=== PATIENT | female | born 1935 | race Caucasian/White ===

== ENCOUNTER 2016-08-05 17:15 | Outpatient (CLI) | payer MEDICARE, OTHER | END 2016-08-05 17:16 | disposition home or self-care (01) | DX: R10.84 Generalized abdominal pain (principal) ==

== ENCOUNTER 2017-10-02 15:06 | Outpatient (CLI) | payer MEDICARE, OTHER ==
--- NOTE | 2017-10-03 14:50 | Mammography Report ---
SCREENING MAMMOGRAM: 10/03/2017 CLINICAL INDICATION: An 82-year-old female with a history of benign left breast biopsy, family history of breast cancer, for screening. COMPARISON: 05/2016, 04/2015, 10/2014, 02/2014, 02/2010. TECHNIQUE: Routine CC and MLO projections were obtained of the breasts. FINDINGS: The breasts again demonstrate fatty replacement bilaterally. Biopsy marker in the left central breast is stable. Coarse and punctate, typically benign calcifications are present. No suspicious masses, clustered microcalcifications, or regions of architectural distortion are identified. IMPRESSION: BENIGN FINDINGS. RECOMMENDATION: Routine annual screening unless otherwise clinically indicated. BIRADS CATEGORY - 2 benign findings. STANDARD QUALIFYING STATEMENTS: 1. This examination was reviewed with the aid of Computer-Aided Detection (CAD). 2. A negative or benign imaging report should not delay biopsy if clinically suspicious findings are present. Consider surgical consultation if warranted. More than 5% of cancers are not identified by imaging. 3. Dense breasts may obscure an underlying neoplasm. TD: 10/03/2017 12:33
== END 2017-10-02 15:07 | disposition home or self-care (01) ==
LOC: DI 15:06
PROVIDERS: ATTEND Physician Assistant Medical
DX: Z12.31 Encounter for screening mammogram for malignant neoplasm of breast (principal); Z80.3 Family history of malignant neoplasm of breast
CPT/HCPCS: 77067

== ENCOUNTER 2017-12-20 16:35 | Outpatient (CLI) | payer MEDICARE, OTHER ==
--- NOTE | 2017-12-20 17:45 | Ultrasound Report ---
REVISED: THIS REPORT WAS ORIGINALLY SIGNED ON 12/20/2017 @ 17:47. THE DATE OF SERVICE WAS CORRECTED ON 12/26/2017. Procedure Date: 12/20/2017 Accession Number: [id number] / [id number] Procedure: US - Duplex Ext Veins Left CPT Code: FULL RESULT: EXAM: LEFT LOWER EXTREMITY VENOUS ULTRASOUND EXAM DATE: 12/20/2017 05:17 PM. CLINICAL HISTORY: EDEMA LEG. COMPARISON: None. TECHNIQUE: Real-time sonographic vascular imaging was performed by the wind site manager through the lower extremity utilizing both color-flow and Doppler spectral analysis. Multiple patient access representative static images were saved for review. FINDINGS: Common Femoral Vein (CFV): Normal. CFV-GSV Junction: Normal. Profunda Femoral Vein (PFV): Normal. Femoral Vein (FV) Prox: Normal. Femoral Vein (FV) Mid: Normal. Femoral Vein (FV) Dist: Normal. Popliteal Vein: Normal. Posterior Tibial Veins: Normal. Peroneal Veins: Normal. Other: None. IMPRESSION: No evidence for deep venous thrombosis. RADIA MTDD
== END 2017-12-20 16:36 | disposition home or self-care (01) ==
LOC: DI 16:35
PROVIDERS: ATTEND Physician Assistant Medical
DX: R60.0 Localized edema (principal)

== ENCOUNTER 2018-09-22 08:08 | Outpatient (CLI) | payer MEDICARE, OTHER ==
[2018-09-22 12:43] LABS: BASOPHILS % (AUTO) 0.5 %; EOSINOPHILS # (AUTO) 0.2 10^3/uL (0.0-0.7); EOSINOPHILS % (AUTO) 3.3 %; HGB - HEMOGLOBIN 13.2 g/dL (12.0-16.0); LYMPHOCYTES # (AUTO) 1.1 10^3/uL (1.5-3.5); MEAN CORPUSCULAR HGB CONC 33.6 g/dL (32.0-36.0); MEAN CORPUSCULAR VOLUME 89.3 fL (81.0-99.0); MEAN PLATELET VOLUME 9.9 fL (7.9-10.8); MONOCYTES # (AUTO) 0.5 10^3/uL (0.0-1.0); MONOCYTES % (AUTO) 8.1 %; NEUTROPHILS # (AUTO) 4.4 10^3/uL (1.5-6.6); NEUTROPHILS % (AUTO) 70.1 %; PLT - PLATELET COUNT 180 10^3/uL (130-450); RED BLOOD COUNT 4.41 10^6/uL (4.20-5.40); RED CELL DISTRIBUTION WIDTH 14.5 % (12.0-15.0); WHITE BLOOD COUNT 6.3 x10^3/uL (4.8-10.8)
[2018-09-22 13:16] LABS: ALBUMIN 3.6 g/dL (3.2-5.5); ALBUMIN/GLOBULIN RATIO 1.2 (1.0-2.2); ALKALINE PHOSPHATASE 90 IU/L (42-121); ALT ALANINE AMINOTRANSFERASE 30 IU/L (10-60); AST ASPARTATE AMINOTRANSFERASE 25 IU/L (10-42); BILIRUBIN,TOTAL 0.8 mg/dL (0.2-1.0); BUN - BLOOD UREA NITROGEN 24 mg/dL (6-20); CALCIUM 8.8 mg/dL (8.5-10.3); CARBON DIOXIDE - CO2 23 mmol/L (21-32); CHLORIDE 109 mmol/L (101-111); CHOL/HDL RATIO 2.4 (<4.4); CHOLESTEROL 127 mg/dL; CREATININE 0.9 mg/dL (0.4-1.0); GFR - MDRD 60 (>89); GLUCOSE 160 mg/dL (70-100); HDL CHOLESTEROL 52 mg/dL; LDL CHOLESTEROL,CALCULATED 60 mg/dL; LDL/HDL RATIO 1.2 (<4.4); SODIUM 141 mmol/L (135-145); TOTAL PROTEIN 6.5 g/dL (6.7-8.2); VLDL CHOLESTEROL 15 mg/dL
[2018-09-22 13:34] LABS: HB2 TOTAL 14.5 g/dL; HEMOGLOBIN A1C 0.75 g/dL; HEMOGLOBIN A1C % 6.9 % (4.6-6.2)
== END 2018-09-22 08:09 | disposition home or self-care (01) ==
LOC: LAB.WCP 08:08
PROVIDERS: ATTEND Physician Assistant Medical
DX: E11.51 Type 2 diabetes mellitus with diabetic peripheral angiopathy without gangrene (principal); E78.5 Hyperlipidemia, unspecified; I10 Essential (primary) hypertension
CPT/HCPCS: 36415; 80053; 80061; 83036; 83721; 84443; 85025

== ENCOUNTER 2018-12-12 08:05 | Emergency (ER) | payer MEDICARE, OTHER ==
--- NOTE | 2018-12-12 09:21 | ED Physician Documentation ---
PD HPI URI - Stated complaint Stated Complaint: COUGH - Chief complaint Chief Complaint: Resp - History obtained from History obtained from: Patient, Family - History of Present Illness Timing - onset: How many days ago (5) Timing duration: Days (5) Timing details: Gradual onset, Still present Associated symptoms: Fever, Nasal congestion, Rhinorrhea, Dry cough, Dyspnea Contributing factors: Sick contact Improves by: Rest, Medication Similar symptoms before: Diagnosis (pneumonia) Recently seen: Not recently seen Review of Systems Constitutional: reports: Fever Eyes: denies: Decreased vision Ears: denies: Ear pain Nose: reports: Congestion Throat: denies: Sore throat Cardiac: denies: Chest pain / pressure, Palpitations Respiratory: reports: Cough. denies: Dyspnea GI: denies: Abdominal Pain, Nausea, Vomiting : denies: Dysuria, Frequency PD PAST MEDICAL HISTORY - Past Medical History Cardiovascular: Hypertension, High cholesterol, Coronary artery disease Endocrine/Autoimmune: Type 2 diabetes, HyPOthyroidism - Present Medications Home Medications: Ambulatory Orders Medication Instructions Recorded Confirmed Aspirin [Bette Chewable] 81 mg PO DAILY 08/27/15 08/27/15 Atorvastatin [Lipitor] 20 mg PO DAILY 08/27/15 08/27/15 Insulin Glargine,Hum.rec.anlog 6 unit SQ DAILY 08/27/15 08/27/15 [Lantus Solostar] Insulin Glulisine [Apidra Solostar] 6 unit SQ TIDWM 08/27/15 08/27/15 Levothyroxine [Synthroid] 150 mcg PO QDAC 08/27/15 08/27/15 Losartan Potassium 50 mg PO DAILY 08/27/15 08/27/15 Nitroglycerin [Nitrostat] 0.4 mg SL Q5M PRN 08/27/15 08/27/15 Amlodipine Besylate 12/12/18 Amox/Clav 875/125 [Augmentin] 1 each PO Q12H #20 tablet 12/12/18 Isosorbide Dinitrate 30 mg PO 12/12/18 - Allergies Allergies/Adverse Reactions: Allergies Allergy/AdvReac Type Severity Reaction Status Date / Time PHANI Inhibitors Allergy Unknown Verified 12/12/18 08:18 azithromycin [From Zithromax] Allergy Unknown Verified 12/12/18 08:18 - Social History Does the pt smoke?: No Smoking Status: Never smoker Does the pt drink ETOH?: No - Immunizations Immunizations are current?: Yes PD ED PE NORMAL - Vitals Vital signs reviewed: Yes (hypertensive ) - General General: Alert and oriented X 3, No acute distress, Well developed/nourished - HEENT HEENT: Atraumatic, PERRL, EOMI, Pharynx benign, Other (both TM's are inflammed with distortion of the landmarks) - Neck Neck: Supple, no meningeal sign, No bony TTP - Cardiac Cardiac: RRR, No murmur - Respiratory Respiratory: No respiratory distress, Other (rhonchi in the right base ) - Abdomen Abdomen: Soft, Non tender - Back Back: No CVA TTP, No spinal TTP - Derm Derm: Normal color, Warm and dry, No rash - Extremities Extremities: No deformity, No edema - Neuro Neuro: Alert and oriented X 3, hoe worker 2-12 intact, No motor deficit, No sensory deficit, Normal speech Eye Opening: Spontaneous Motor: Obeys Commands Verbal: Oriented GCS Score: 15 - Psych Psych: Normal mood, Normal affect Results - Vitals Vitals: Vital Signs - 24 hr 12/12/18 12/12/18 12/12/18 08:16 08:42 11:21 Temperature 36.8 C 37.1 C Heart Rate 61 60 54 L Respiratory 20 20 16 Rate Blood Pressure 149/69 H 132/61 H 158/59 H O2 Saturation 94 97 96 Oxygen O2 Source Room air - Rads (name of study) chest Radiology: Prelim report reviewed (Impression: 1. Mild left basilar opacity, atelectasis/scarring or infiltrate. Right lung appears clear. Evidence of prior intrathoracic surgery.), EMP read indepedently, See rad report PD MEDICAL DECISION MAKING - ED course Complexity details: reviewed results, re-evaluated patient, considered differential, d/w patient, d/w family ED course: 83 y/o female with cough and congestion has BOM on exam and rhonchi with correlating findings on CXR. She is administered IM rocephin. Departure - Departure Disposition: 01 Home, Self Care Clinical Impression: Pneumonia Qualifiers: Pneumonia type: due to unspecified organism Laterality: bilateral Lung location: lower lobe of lung Qualified Code(s): J18.1 - Lobar pneumonia, unspecified organism Otitis media Qualifiers: Otitis media type: suppurative Chronicity: acute Laterality: bilateral Recurrence: non-recurrent Spontaneous tympanic membrane rupture: without spontaneous rupture Qualified Code(s): H66.003 - Acute suppurative otitis media without spontaneous rupture of ear drum, bilateral Condition: Stable Instructions: ED Otitis Media Acute Adult, ED Pneumonia Adult Follow-Up: Promise Morris PA-C [Primary Care Provider] - Prescriptions: Amox/Clav 875/125 [Augmentin] 1 each PO Q12H #20 tablet Discharge Date/Time: 12/12/18 11:21
[2018-12-12] MEDS ORDERED: LIDOCAINE 1% 2 ML VIAL MC ONE (09:48)
[2018-12-12] MEDS ORDERED: cefTRIAXone 1 GM VIAL IM STA (09:48)
--- NOTE | 2018-12-12 10:19 | XRAY Report ---
Reason: rhonchi in right base Procedure Date: 12/12/2018 Accession Number: [id number] / [id number] Procedure: XR - Chest 2 View X-Ray CPT Code: 18305 FULL RESULT: EXAM: CHEST RADIOGRAPHY EXAM DATE: 12/12/2018 09:35 AM. CLINICAL HISTORY: Rhonchi in right base. COMPARISON: CHEST SPECIAL VIEW 04/14/2013 10:34 AM. TECHNIQUE: 2 views. FINDINGS: Lungs/Pleura: Mild left basal opacity, atelectasis/ scarring or infiltrate. Right lung appears clear. No significant pleural effusion or evidence of pneumothorax. Mediastinum: Similar cardiomegaly. Sternotomy changes with evidence of CABG. Other: None. IMPRESSION: 1. Mild left basal opacity, atelectasis/scarring or infiltrate. Right lung appears clear. 2. Evidence of prior intrathoracic surgery. RAD[facility]
[2018-12-12 11:21] VITALS: BP 158/59
== END 2018-12-12 11:21 | disposition home or self-care (01) ==
LOC: ED 08:05
DX: J18.1 Lobar pneumonia, unspecified organism (principal); H66.003 Acute suppurative otitis media without spontaneous rupture of ear drum, bilateral; I10 Essential (primary) hypertension; E11.9 Type 2 diabetes mellitus without complications; Z79.4 Long term (current) use of insulin
CPT/HCPCS: 71046; 96372; 99283; 99284

== ENCOUNTER 2018-12-28 13:52 | Outpatient (CLI) | payer MEDICARE, OTHER ==
--- NOTE | 2018-12-29 08:48 | Mammography Report ---
Reason: SCREENING MAMMO Procedure Date: 12/28/2018 Accession Number: [id number] / [id number] Procedure: FABIOLA - Screening Mammo w/Sky CPT Code: FULL RESULT: EXAM: Screening Mammo w/Sky DATE: 12/28/2018 2:59 PM CLINICAL HISTORY: Screening encounter. Family history of breast cancer in the mother as well as a sister. History of left breast core biopsy with clip placement. TECHNIQUE: (B) - Bilateral CC and MLO views were obtained. COMPARISON: 10/02/2017 through 02/06/2010. PARENCHYMAL PATTERN: (F) - The breast(s) demonstrate(s) diffuse fatty replacement. FINDINGS: There are typically benign vascular calcifications. A left breast biopsy clip is redemonstrated. There are no suspicious masses, calcifications, or areas of distortion. IMPRESSION: Benign findings. BI-RADS category 2. RECOMMENDATION: (ANNUAL) - Recommend routine annual screening mammography. BI-RADS CATEGORY: (2) - Benign Findings. STANDARD QUALIFYING STATEMENTS: 1. This examination was not reviewed with the aid of Computer-Aided Detection (CAD). 2. A negative or benign imaging report should not preclude biopsy if clinically suspicious findings are present. 3. Dense breasts may obscure an underlying neoplasm. 4. This examination was reviewed with the aid of 3D breast imaging (tomosynthesis).
== END 2018-12-28 13:53 | disposition home or self-care (01) ==
LOC: DI 13:52
DX: Z12.31 Encounter for screening mammogram for malignant neoplasm of breast (principal); Z80.3 Family history of malignant neoplasm of breast
CPT/HCPCS: 77063; 77067

== ENCOUNTER 2019-02-10 00:47 | Outpatient (CLI) | payer MEDICARE, OTHER | END 2019-02-10 00:48 | disposition short-term general hospital (02) | LOC: EMS 00:47 | PROVIDERS: ATTEND Surgery | DX: M54.9 Dorsalgia, unspecified (principal) | CPT/HCPCS: A0425; A0427 ==

== ENCOUNTER 2019-02-15 08:00 | Outpatient (CLI) | payer MEDICARE, OTHER | END 2019-02-15 23:59 | disposition home or self-care (01) | LOC: LAB.R 08:00 | PROVIDERS: ATTEND Physician Assistant Medical | DX: M54.5 Low back pain (principal); N28.9 Disorder of kidney and ureter, unspecified; Z79.899 Other long term (current) drug therapy; I10 Essential (primary) hypertension; E66.9 Obesity, unspecified; Z79.4 Long term (current) use of insulin | CPT/HCPCS: 87086 ==

== ENCOUNTER 2019-02-25 05:23 | Emergency (ER) | payer MEDICARE, OTHER ==
[2019-02-25 05:38] VITALS: BP 177/54
--- NOTE | 2019-02-25 06:10 | ED Physician Documentation ---
PD HPI LOWER EXT INJURY - Stated complaint Stated Complaint: LT LEG PX - Chief complaint Chief Complaint: Ext Problem - History obtained from History obtained from: Patient, Family - History of Present Illness PD HPI LOW EXT INJURY LOCATION: Left, Upper leg Type of injury: Blunt / blow Where injury occurred: Home Timing - onset: How many days ago (5) Timing - duration: Days (5) Timing - details: Abrupt onset, Still present, Waxing and waning Improved by: Rest, Immobilization Worsened by: Moving Associated symptoms: No: Weakness, Numbness, Tingling, Swelling, Discolored Contributing factors: Anticoagulated Similar symptoms before: Has not had sx before Recently seen: Admitted, Surgery - Additional information Additional information: 83-year-old female who has had a recent small NC and has been placed on Eliquis for atrial fibrillation struck her thigh on a side table about 5 days ago and she has had pain in her thigh since. She states that she is able to walk on this and does not seem to have pain when she is walking. It does not seem to be painful just to push on it, but if she goes to move her leg to flex at the hip she has pain. She is worried about a blood clot. Review of Systems Constitutional: denies: Fever Eyes: denies: Decreased vision Ears: denies: Ear pain Nose: denies: Congestion Throat: denies: Sore throat Cardiac: denies: Chest pain / pressure, Palpitations Respiratory: denies: Dyspnea, Cough GI: denies: Abdominal Pain, Nausea, Vomiting : denies: Dysuria, Frequency Musculoskeletal: reports: Extremity pain. denies: Extremity swelling, Pain with weight bearing Neurologic: denies: Generalized weakness, Focal weakness, Numbness PD PAST MEDICAL HISTORY - Past Medical History Past Medical History: Yes Cardiovascular: Hypertension, High cholesterol, Coronary artery disease Respiratory: None Neuro: None Endocrine/Autoimmune: Type 2 diabetes, HyPOthyroidism GI: None ENDOSCOPY TECHNICAN: None : None HEENT: None Psych: None Musculoskeletal: None Derm: None - Past Surgical History Past Surgical History: No - Present Medications Home Medications: Ambulatory Orders Medication Instructions Recorded Confirmed Aspirin [Bette Chewable] 81 mg PO DAILY 08/27/15 08/27/15 Atorvastatin [Lipitor] 20 mg PO DAILY 08/27/15 08/27/15 Insulin Glargine,Hum.rec.anlog 6 unit SQ DAILY 08/27/15 08/27/15 [Lantus Solostar] Insulin Glulisine [Apidra Solostar] 6 unit SQ TIDWM 08/27/15 08/27/15 Levothyroxine [Synthroid] 150 mcg PO QDAC 08/27/15 08/27/15 Losartan Potassium 50 mg PO DAILY 08/27/15 08/27/15 Nitroglycerin [Nitrostat] 0.4 mg SL Q5M PRN 08/27/15 08/27/15 Amlodipine Besylate 12/12/18 Amox/Clav 875/125 [Augmentin] 1 each PO Q12H #20 tablet 12/12/18 Isosorbide Dinitrate 30 mg PO 12/12/18 - Allergies Allergies/Adverse Reactions: Allergies Allergy/AdvReac Type Severity Reaction Status Date / Time PHANI Inhibitors Allergy Unknown Verified 02/25/19 05:38 azithromycin [From Zithromax] Allergy Unknown Verified 02/25/19 05:38 - Social History Does the pt smoke?: No Smoking Status: Never smoker Does the pt drink ETOH?: No Does the pt have substance abuse?: No - Immunizations Immunizations are current?: Yes - POLST Patient has POLST: No PD ED PE NORMAL - Vitals Vital signs reviewed: Yes (hypertensive ) - General General: Alert and oriented X 3, No acute distress, Well developed/nourished - HEENT HEENT: Atraumatic, PERRL, EOMI - Neck Neck: Supple, no meningeal sign - Respiratory Respiratory: No respiratory distress - Derm Derm: Normal color, Warm and dry, No rash - Extremities Extremities: No deformity, No tenderness to palpate, Normal ROM s pain, No edema, No calf tenderness / cord, Other (With the use of bedside ultrasound the left anterior thigh is imaged and there is a hematoma about 3cm in size about 3cm deep. No free fluid.) - Neuro Neuro: Alert and oriented X 3, nurse infection control 2-12 intact, No motor deficit, No sensory deficit, Normal speech Eye Opening: Spontaneous Motor: Obeys Commands Verbal: Oriented GCS Score: 15 - Psych Psych: Normal mood, Normal affect Results - Vitals Vitals: Vital Signs - 24 hr 02/25/19 05:35 Temperature 36.4 C L Heart Rate 66 Respiratory 16 Rate Blood Pressure 177/54 H O2 Saturation 99 Oxygen O2 Source Room air Procedures - Bedside sono Bedside sono by EMP: With use of bedside ultrasound the left anterior thigh is imaged there is a 3 cm round hematoma in the deep tissues of the thigh anteriorly and slightly medial to midline. It is approximately in the middle of the thigh. There is no free fluid. PD MEDICAL DECISION MAKING - ED course Complexity details: reviewed results, re-evaluated patient, considered differential, d/w patient, d/w family ED course: 83-year-old female recently placed on Eliquis has been bumped her left thigh and she has a deep hematoma causing her some pain when she flexes the thigh muscle. She is otherwise not having pain if she is at rest or even if she is bearing weight and walking. She is given instructions on hematoma and reassured. Departure - Departure Disposition: 01 Home, Self Care Clinical Impression: Hematoma of thigh Qualifiers: Encounter type: initial encounter Laterality: left Qualified Code(s): S70.12XA - Contusion of left thigh, initial encounter Condition: Stable Instructions: ED Hematoma Follow-Up: Promise Morris PA-C [Primary Care Provider] -
== END 2019-02-25 06:23 | disposition home or self-care (01) ==
LOC: ED 05:23
DX: S70.12XA Contusion of left thigh, initial encounter (principal); W22.03XA Walked into furniture, initial encounter; Y92.009 Unspecified place in unspecified non-institutional (private) residence as the place of occurrence of the external cause; I48.91 Unspecified atrial fibrillation; Z79.01 Long term (current) use of anticoagulants; I25.10 Atherosclerotic heart disease of native coronary artery without angina pectoris; I25.2 Old myocardial infarction; I10 Essential (primary) hypertension; E11.9 Type 2 diabetes mellitus without complications; Z79.4 Long term (current) use of insulin; Z79.82 Long term (current) use of aspirin
CPT/HCPCS: 99282

== ENCOUNTER 2019-03-08 04:36 | Emergency (ER) | payer MEDICARE, OTHER ==
[2019-03-08] MEDS ORDERED: BENZONATATE 100 MG CAPSULE PO STA (05:16)
--- NOTE | 2019-03-08 05:24 | ED Physician Documentation ---
PD HPI URI - Stated complaint Stated Complaint: COUGHIN, CONGESTION - Chief complaint Chief Complaint: Resp - History obtained from History obtained from: Patient, Family - History of Present Illness Timing - onset: How many days ago (5) Timing duration: Days (5) Timing details: Gradual onset Pain level max: 0 Pain level now: 0 Associated symptoms: Chills, Dry cough. No: Fever, Nasal congestion, Rhinorrhea, Hemoptysis, Chest pain, Dyspnea, NVD Contributing factors: Sick contact Improves by: Rest Worsened by: Activity, Breathing Recently seen: Other (Patient states she was recently treated for a bladder infection with cephalexin.) Review of Systems Constitutional: denies: Fever, Chills Ears: denies: Ear pain Nose: denies: Rhinorrhea / runny nose, Congestion Cardiac: denies: Chest pain / pressure Respiratory: denies: Dyspnea GI: denies: Vomiting, Diarrhea Skin: denies: Rash Musculoskeletal: denies: Neck pain, Back pain Neurologic: denies: Focal weakness, Numbness, Headache PD PAST MEDICAL HISTORY - Past Medical History Cardiovascular: Hypertension, High cholesterol, Coronary artery disease Respiratory: None Neuro: None Endocrine/Autoimmune: Type 2 diabetes, HyPOthyroidism GI: None TREATING ENGINEER: None : None HEENT: None Psych: None Musculoskeletal: None Derm: None - Past Surgical History Past Surgical History: No - Present Medications Home Medications: Ambulatory Orders Medication Instructions Recorded Confirmed Atorvastatin [Lipitor] 80 mg PO DAILY 08/27/15 03/08/19 Insulin Glargine,Hum.rec.anlog 8 unit SQ DAILY 08/27/15 03/08/19 [Lantus Solostar] Insulin Glulisine [Apidra Solostar] 6 unit SQ TIDWM 08/27/15 03/08/19 Levothyroxine [Synthroid] 137 mcg PO QDAC 08/27/15 03/08/19 Losartan Potassium 50 mg PO DAILY 08/27/15 03/08/19 Nitroglycerin [Nitrostat] 0.4 mg SL Q5M PRN 08/27/15 03/08/19 Amlodipine Besylate 10 mg PO BID 12/12/18 03/08/19 Isosorbide Dinitrate 120 mg PO DAILY 12/12/18 03/08/19 Apixaban [Eliquis] 5 mg PO BID 02/25/19 03/08/19 Furosemide 20 mg PO DAILY 02/25/19 03/08/19 Benzonatate [Tessalon Perle] 100 - 200 mg PO TID PRN #30 capsule 03/08/19 Doxycycline Hyclate 100 mg PO BID #20 capsule 03/08/19 - Allergies Allergies/Adverse Reactions: Allergies Allergy/AdvReac Type Severity Reaction Status Date / Time PHANI Inhibitors Allergy Unknown Verified 03/08/19 04:50 azithromycin [From Zithromax] Allergy Unknown Verified 03/08/19 04:50 - Social History Does the pt smoke?: No Smoking Status: Never smoker Does the pt drink ETOH?: No Does the pt have substance abuse?: No - Immunizations Immunizations are current?: Yes - POLST Patient has POLST: No PD ED PE NORMAL - Vitals Vital signs reviewed: Yes - General General: Alert and oriented X 3, No acute distress - HEENT HEENT: PERRL, Ears normal, Moist mucous membranes, Pharynx benign - Neck Neck: Supple, no meningeal sign - Cardiac Cardiac: RRR, Strong equal pulses - Respiratory Respiratory: No respiratory distress, Clear bilaterally - Abdomen Abdomen: Soft, Non tender, Non distended - Derm Derm: Warm and dry - Extremities Extremities: No edema, No calf tenderness / cord - Neuro Neuro: Alert and oriented X 3 - Psych Psych: Normal mood, Normal affect Results - Vitals Vitals: Vital Signs - 24 hr 03/08/19 03/08/19 04:43 06:18 Temperature 36.7 C Heart Rate 82 80 Respiratory 19 16 Rate Blood Pressure 147/52 H 149/89 H O2 Saturation 97 98 Oxygen O2 Source Room air - Rads (name of study) cxr Radiology: Prelim report reviewed, EMP read contemporaneously, See rad report (1. Borderline cardiomegaly and postoperative changes. 2. New pulmonary opacities in the right upper lung field and left base which could represent pneumonia. Recommend radiographic follow-up to assure resolution. 3. Possible small left pleural effusion. ) PD MEDICAL DECISION MAKING - ED course Complexity details: reviewed results, re-evaluated patient, considered differential, d/w patient, d/w family ED course: Patient with pneumonia. Will place on doxycycline. She is well-appearing, nontoxic. Afebrile. No hypoxia. No respiratory distress. Patient counseled regarding signs and symptoms for which I believe and urgent re-evaluation would be necessary. Patient with good understanding of and agreement to plan and is comfortable going home at this time This document was made in part using voice recognition software. While efforts are made to proofread this document, sound alike and grammatical errors may occur. Departure - Departure Disposition: 01 Home, Self Care Clinical Impression: Pneumonia Qualifiers: Pneumonia type: due to unspecified organism Laterality: unspecified laterality Lung location: unspecified part of lung Qualified Code(s): J18.9 - Pneumonia, unspecified organism Condition: Good Instructions: ED Pneumonia Adult Follow-Up: Promise Morris PA-C [Primary Care Provider] - Within 1 week Prescriptions: Benzonatate [Tessalon Perle] 100 - 200 mg PO TID PRN #30 capsule PRN Reason: Cough Doxycycline Hyclate 100 mg PO BID #20 capsule Comments: Take all antibiotics until gone. Return if you worsen. You have pneumonia on your chest xray today. Discharge Date/Time: 03/08/19 06:30
--- NOTE | 2019-03-08 05:57 | XRAY Report ---
Reason: cough Procedure Date: 03/08/2019 Accession Number: [id number] / [id number] Procedure: XR - Chest 2 View X-Ray CPT Code: 40602 Final Report FULL RESULT: EXAM: CHEST RADIOGRAPHY EXAM DATE: 03/08/2019 05:52 AM. CLINICAL HISTORY: Cough. COMPARISON: CHEST 2 VIEW 12/12/2018 9:24 AM. TECHNIQUE: 2 views. FINDINGS: Lungs/Pleura: Mild new opacity in the right upper lung field. Moderate new opacity at the left base. Possible small left pleural effusion. No pneumothorax. Mediastinum: Borderline cardiomegaly. Aortic atherosclerosis. Other: Median sternotomy and CABG. IMPRESSION: 1. Borderline cardiomegaly and postoperative changes. 2. New pulmonary opacities in the right upper lung field and left base which could represent pneumonia. Recommend radiographic follow-up to assure resolution. 3. Possible small left pleural effusion. RADIA
[2019-03-08] MEDS ORDERED: DOXYCYCLINE 100 MG TABLET PO STA (06:06)
[2019-03-08 06:18] VITALS: BP 149/89
== END 2019-03-08 06:30 | disposition home or self-care (01) ==
LOC: ED 04:36
DX: J18.9 Pneumonia, unspecified organism (principal); I10 Essential (primary) hypertension; E78.00 Pure hypercholesterolemia, unspecified; I25.10 Atherosclerotic heart disease of native coronary artery without angina pectoris; E11.9 Type 2 diabetes mellitus without complications; E03.9 Hypothyroidism, unspecified
CPT/HCPCS: 71046; 99283; 99284; A9270

== ENCOUNTER 2019-03-23 10:01 | Outpatient (CLI) | payer MEDICARE, OTHER ==
--- NOTE | 2019-03-23 15:39 | XRAY Report ---
Reason: PNEUMONIA Procedure Date: 03/23/2019 Accession Number: [id number] / [id number] Procedure: WCP - Chest 2 View X-Ray CPT Code: 32941 Final Report FULL RESULT: EXAM: CHEST RADIOGRAPHY. EXAM DATE: 03/23/2019 10:01 AM. CLINICAL HISTORY: Pneumonia. COMPARISON: CHEST 2 VIEW 03/08/2019 5:41 AM. TECHNIQUE: 2 views. FINDINGS: Lungs/Pleura: Increased pulmonary markings at the left posterior lung base are again seen and similar in prominence to the previous study. There is a small associated left pleural effusion. Right lung is clear. No right pleural effusion and no pneumothorax on either side. Mediastinum: Accounting for differences in technique the cardiomediastinal silhouette is likely unchanged including post CABG changes with median sternotomy and mild calcifications of the aortic arch. Other: None. IMPRESSION: Persistent left basilar airspace disease likely with small pleural effusion. RADIA
== END 2019-03-23 23:59 | disposition home or self-care (01) ==
LOC: DI.WCP 10:01
PROVIDERS: ATTEND Physician Assistant Medical
DX: J18.9 Pneumonia, unspecified organism (principal)
CPT/HCPCS: 71046

== ENCOUNTER 2019-03-25 08:00 | Outpatient (CLI) | payer MEDICARE, OTHER ==
[2019-03-25 13:31] LABS: ALBUMIN 3.6 g/dL (3.2-5.5); ALKALINE PHOSPHATASE 77 IU/L (42-121); ALT ALANINE AMINOTRANSFERASE 31 IU/L (10-60); AST ASPARTATE AMINOTRANSFERASE 33 IU/L (10-42); BILIRUBIN,TOTAL 1.2 mg/dL (0.2-1.0); BUN - BLOOD UREA NITROGEN 37 mg/dL (6-20); CARBON DIOXIDE - CO2 26 mmol/L (21-32); CHLORIDE 108 mmol/L (101-111); CHOL/HDL RATIO 2.4 (<4.4); CHOLESTEROL 109 mg/dL; CREATININE 1.2 mg/dL (0.4-1.0); GFR - MDRD 43 (>89); GLUCOSE 148 mg/dL (70-100); HDL CHOLESTEROL 46 mg/dL; LDL CHOLESTEROL,CALCULATED 47 mg/dL; SODIUM 142 mmol/L (135-145); TOTAL PROTEIN 7.1 g/dL (6.7-8.2); VLDL CHOLESTEROL 16 mg/dL
[2019-03-25 13:53] LABS: HB2 TOTAL 11.7 g/dL; HEMOGLOBIN A1C 0.65 g/dL; HEMOGLOBIN A1C % 7.2 % (4.6-6.2)
== END 2019-03-25 23:59 | disposition home or self-care (01) ==
LOC: LAB.WCP 08:00
PROVIDERS: ATTEND Physician Assistant Medical
DX: E11.59 Type 2 diabetes mellitus with other circulatory complications (principal); J18.9 Pneumonia, unspecified organism; E03.9 Hypothyroidism, unspecified
CPT/HCPCS: 36415; 80053; 80061; 83036; 83721; 84443

== ENCOUNTER 2019-03-30 07:19 | Outpatient (CLI) | payer MEDICARE, OTHER ==
[2019-03-30] MEDS ORDERED: IOVERSOL 320 100 ML VIAL IVP ONE ×2 (07:21→13:40)
--- NOTE | 2019-03-30 08:44 | CT Report ---
Reason: PNEUMONIA Procedure Date: 03/30/2019 Accession Number: [id number] / [id number] Procedure: CT - CHEST W CPT Code: Final Report FULL RESULT: EXAM: CT CHEST EXAM DATE: 03/30/2019 07:50 AM. CLINICAL HISTORY: Pneumonia. COMPARISONS: 03/23/2019 CXR. TECHNIQUE: Routine helical CT imaging was performed through the chest. IV contrast: None. Reconstructions: Coronal and sagittal. In accordance with CT protocol optimization, one or more of the following dose reduction techniques were utilized for this exam: automated exposure control, adjustment of mA and/or KV based on patient size, or use of iterative reconstructive technique. FINDINGS: Lungs/Pleura: There is a small left basilar pleural fluid collection with patchy adjacent airspace and interstitial infiltrate. Minimal left lower lobe peribronchial thickening. Mild diffuse pneumonitis. No pneumothorax. Mediastinum: The heart is prominent. There is no pericardial effusion. There are shotty prevascular lymph nodes. No maribeth mediastinal or hilar adenopathy. Scant atherosclerotic calcifications are affiliated with the aorta and coronary arteries. Bones: Multilevel degenerative changes throughout the thoracic spine. No destructive bony lesions. Visualized Abdomen: Moderate hiatal hernia noted. Surgical clips are present in the right upper quadrant, post cholecystectomy. Other: Mediastinal wires in place. IMPRESSION: Small left basilar effusion. Adjacent airspace and interstitial infiltrate. RADIA
--- NOTE | 2019-03-30 14:00 | Ultrasound Report ---
Reason: EDEMA LEG Procedure Date: 03/30/2019 Accession Number: [id number] / [id number] Procedure: US - Duplex Ext Veins Left CPT Code: Addended Final Report FULL RESULT: EXAM: LEFT LOWER EXTREMITY VENOUS ULTRASOUND EXAM DATE: 03/30/2019 01:11 PM. CLINICAL HISTORY: Leg edema. COMPARISON: DUPLEX EXT VEINS LEFT 12/20/2017 4:48 PM. TECHNIQUE: Real-time sonographic vascular imaging was performed by the novelty maker through the lower extremity utilizing both color-flow and Doppler spectral analysis. Multiple civil rights representative static images were saved for review. FINDINGS: Common Femoral Vein (CFV): Normal. CFV-GSV Junction: Normal. Profunda Femoral Vein (PFV): Normal. Femoral Vein (FV) Prox: Normal. Femoral Vein (FV) Mid: Normal. Femoral Vein (FV) Dist: Normal. Popliteal Vein: Normal. Posterior Tibial Veins: Normal. Peroneal Veins: Normal. There is superficial soft tissue edema. Other: None. IMPRESSION: No evidence for deep venous thrombosis. RADIA The call report notification system was initiated by Dr. Alejo Orantes at 01:58 PM on 03/30/2019. ADDENDUM: 03/30/19 14:34 The above call report findings were discussed with Promise Morris by Dr. Alejo Orantes at 02:34 PM on 03/30/2019.
== END 2019-03-30 07:20 | disposition home or self-care (01) ==
LOC: DI 07:19
PROVIDERS: ATTEND Physician Assistant Medical
DX: J18.9 Pneumonia, unspecified organism (principal); R60.0 Localized edema; J90 Pleural effusion, not elsewhere classified
CPT/HCPCS: 71260; 93971; Q9967

== ENCOUNTER 2019-04-21 16:43 | Outpatient (CLI) | payer MEDICARE, OTHER ==
--- NOTE | 2019-04-21 17:46 | XRAY Report ---
Reason: INSTERSTITIAL PNEUMONIA Procedure Date: 04/21/2019 Accession Number: [id number] / [id number] Procedure: XR - Chest 2 View X-Ray CPT Code: 45446 Final Report FULL RESULT: EXAM: CHEST RADIOGRAPHY EXAM DATE: 04/21/2019 04:57 PM. CLINICAL HISTORY: INSTERSTITIAL PNEUMONIA. COMPARISON: CHEST W/ 03/30/2019 7:40 AM CHEST 2 VIEW 03/23/2019 9:38 AM CHEST 2 VIEW PA/LAT 11/27/2012 10:52 AM CHEST 2 VIEW 12/12/2018 9:24 AM. TECHNIQUE: 2 views. FINDINGS: Lungs/Pleura: Increased markings left base as before. Tiny left pleural effusion persists. Pleural thickening left lateral chest wall stable. New faint increased density right perihilar region, question atelectasis or infiltrate. Mediastinum: Status post sternotomy. Cardiomegaly. Other: Surgical clip upper abdomen; degenerative change in the spine. IMPRESSION: Persistent abnormal chest x-ray, stable to minimally worsened compared with 03/23/2019 and 03/30/2019 RADIA
== END 2019-04-21 16:44 | disposition home or self-care (01) ==
LOC: DI 16:43
PROVIDERS: ATTEND Physician Assistant Medical
DX: J84.9 Interstitial pulmonary disease, unspecified (principal); J90 Pleural effusion, not elsewhere classified; J98.4 Other disorders of lung
CPT/HCPCS: 71046

== ENCOUNTER 2019-05-11 12:50 | Outpatient (CLI) | payer MEDICARE, OTHER ==
--- NOTE | 2019-05-12 08:49 | DEXA Report ---
Reason: POSTMENOPAUSAL STATUS Procedure Date: 05/11/2019 Accession Number: [id number] / [id number] Procedure: DEX - Dexa Spine and/or Hip CPT Code: Final Report FULL RESULT: EXAM: Dexa Spine and/or Hip DATE: 05/11/2019 1:35 PM CLINICAL HISTORY: POSTMENOPAUSAL STATUS TECHNIQUE: Dual energy x-ray absorptiometry (DXA) was performed on a [employer] System. Regions measured are the AP Spine, femoral neck, and if needed forearm. COMPARISON: None. In accordance with the International Society for Clinical Densitometry (ISCD) guidelines, data from previous exams may be reanalyzed using current recommendations and techniques. This is done to allow a more accurate basis for comparison with the current study. FINDINGS: The data for the lumbar spine is as follows: BMD (g/cm/cm) T-SCORE Z-SCORE REGION L1 1.135 0.0 1.3 L2 1.389 1.6 2.8 L3 1.582 3.2 4.4 L4 1.610 3.4 4.7 TOTAL 1.444 2.2 3.4 NOTE: All evaluable vertebrae are used for classification The data for the hip is as follows: BMD (g/cm/cm) T-SCORE Z-SCORE REGION Neck 0.652 -2.8 -1.0 TOTAL 0.616 -3.1 -1.5 NOTE: The femoral neck or total proximal femur, whichever is lowest, is used for classification. Denotes dissimilar scan types or analysis methods. IMPRESSION: THE WHO CLASSIFICATION BASED ON THE INTERNATIONAL REFERENCE STANDARD IS OSTEOPOROSIS. THE FRACTURE RISK IS HIGH. RECOMMENDATION: Patients with diagnosis of osteoporosis or osteopenia should have regular bone mineral density assessment. For those eligible for Medicare, routine testing is allowed once every 2 years. Testing frequency can be increased for patients who have rapidly progressing disease or for those who are receiving medical therapy to restore bone mass. COMMENT: World Health Organization (WHO) definitions for osteoporosis and osteopenia: NORMAL BMD: T-score at -1.0 or higher, fracture risk is low OSTEOPENIA BMD: T-score between -1.0 and -2.5, fracture risk is increased. OSTEOPOROSIS BMD: T-score at -2.5 or lower, fracture risk is high. National Osteoporosis Foundation recommends: 1. Obtain adequate dietary calcium (at least 1200 mg per day) and vitamin D (400-800 international units per day). 2. Participate, as appropriate, in regular weightbearing and muscle-strengthening exercise. 3. Avoid tobacco use and reduce alcohol and caffeine intake. 4. For more detailed information see the website at www.NOF.org.
== END 2019-05-11 12:51 | disposition home or self-care (01) ==
LOC: DI 12:50
PROVIDERS: ATTEND Physician Assistant Medical
DX: M81.0 Age-related osteoporosis without current pathological fracture (principal)
CPT/HCPCS: 77080

== ENCOUNTER 2019-06-04 12:53 | Outpatient (CLI) | payer MEDICARE, OTHER ==
--- NOTE | 2019-06-04 14:43 | CT Report ---
Reason: LUNG INFILTRATE ON CT Procedure Date: 06/04/2019 Accession Number: [id number] / [id number] Procedure: CT - CHEST WO CPT Code: Final Report FULL RESULT: EXAM: CT CHEST EXAM DATE: 06/04/2019 01:21 PM. CLINICAL HISTORY: Lung infiltrate on CT. COMPARISONS: Chest radiographs 04/21/[address] 03/30/2019. TECHNIQUE: Routine helical CT imaging was performed through the chest. IV contrast: None. Reconstructions: Coronal and sagittal. In accordance with CT protocol optimization, one or more of the following dose reduction techniques were utilized for this exam: automated exposure control, adjustment of mA and/or KV based on patient size, or use of iterative reconstructive technique. FINDINGS: Lungs/Pleura: Mild peribronchial thickening. Persistent lobulated pleural thickening and/or fluid posterior and lateral aspect left lower lobe with adjacent patchy interstitial and airspace opacities. Decreased patchy and linear opacities in the periphery of the lingula as well as decreased patchy opacities in the posterior and lateral aspect right upper lobe. Increased patchy and linear opacities right lower lobe. 0.5 cm calcified nodule again noted superior segment right lower lobe. Mediastinum: Mild cardiomegaly. No pericardial effusion. Multiple mildly prominent mediastinal lymph nodes, similar. Calcified atherosclerosis again noted in the coronary arteries and aortic arch. Bones: Moderate degenerative disk changes throughout the thoracic spine. Post surgical changes of median sternotomy. Visualized Abdomen: Moderate hiatal hernia. Cholecystectomy. Moderate calcified atherosclerosis in the abdominal aorta. Splenic artery calcifications noted. Fatty replacement of the pancreas partially visualized. Other: None. IMPRESSION: 1. Decreased air space opacities in the right upper lobe and lingula. 2. Persistent lobulated pleural thickening and/or fluid posterior lateral aspect left lower lobe with interstitial and airspace opacities. Recommend follow-up CT in 4-6 weeks following treatment to ensure resolution. 3. Mild peribronchial thickening. 4. Mild cardiomegaly. 5. Moderate hiatal hernia. RADIA
== END 2019-06-04 12:54 | disposition home or self-care (01) ==
LOC: DI 12:53
PROVIDERS: ATTEND Internal Medicine
DX: R91.8 Other nonspecific abnormal finding of lung field (principal); I51.7 Cardiomegaly; K44.9 Diaphragmatic hernia without obstruction or gangrene; M51.34 Other intervertebral disc degeneration, thoracic region
CPT/HCPCS: 71250

== ENCOUNTER 2019-10-26 07:51 | Outpatient (CLI) | payer MEDICARE, OTHER ==
[2019-10-26 12:31] LABS: HB2 TOTAL 12.9 g/dL; HEMOGLOBIN A1C 0.66 g/dL; HEMOGLOBIN A1C % 6.8 % (4.6-6.2)
[2019-10-26 12:35] LABS: ALBUMIN 3.7 g/dL (3.2-5.5); ALBUMIN/GLOBULIN RATIO 1.2 (1.0-2.2); ALKALINE PHOSPHATASE 66 IU/L (42-121); ALT ALANINE AMINOTRANSFERASE 22 IU/L (10-60); AST ASPARTATE AMINOTRANSFERASE 25 IU/L (10-42); BILIRUBIN,TOTAL 1.4 mg/dL (0.2-1.0); BUN - BLOOD UREA NITROGEN 44 mg/dL (6-20); CALCIUM 8.8 mg/dL (8.5-10.3); CARBON DIOXIDE - CO2 24 mmol/L (21-32); CHLORIDE 108 mmol/L (101-111); CHOL/HDL RATIO 2.1 (<4.4); CHOLESTEROL 103 mg/dL; CREATININE 1.5 mg/dL (0.4-1.0); GLUCOSE 135 mg/dL (70-100); HDL CHOLESTEROL 48 mg/dL; LDL CHOLESTEROL,CALCULATED 40 mg/dL; LDL/HDL RATIO 0.8 (<4.4); SODIUM 140 mmol/L (135-145); TOTAL PROTEIN 6.7 g/dL (6.7-8.2); VLDL CHOLESTEROL 15 mg/dL
== END 2019-10-26 23:59 | disposition home or self-care (01) ==
LOC: LAB.WCP 07:51
PROVIDERS: ATTEND Physician Assistant Medical
DX: E11.51 Type 2 diabetes mellitus with diabetic peripheral angiopathy without gangrene (principal); E03.9 Hypothyroidism, unspecified; I10 Essential (primary) hypertension; E78.2 Mixed hyperlipidemia
CPT/HCPCS: 36415; 80053; 80061; 83036; 83721; 83735; 84443

== ENCOUNTER → 2019-12-21 | Outpatient (CLI) | payer MEDICARE, OTHER ==
[2019-12-21 18:32] LABS: CALCIUM 9.2 mg/dL (8.5-10.3); CREATININE 1.8 mg/dL (0.4-1.0)
== END ==
LOC: LAB.WCP 14:18
PROVIDERS: ATTEND Physician Assistant Medical
DX: N18.9 Chronic kidney disease, unspecified (principal)
CPT/HCPCS: 36415; 80048

== ENCOUNTER 2020-01-13 17:45 | Outpatient (CLI) | payer MEDICARE, OTHER ==
[2020-01-13 18:16] LABS: BASOPHILS % (AUTO) 0.5 %; EOSINOPHILS # (AUTO) 0.1 10^3/uL (0.0-0.7); EOSINOPHILS % (AUTO) 2.1 %; HGB - HEMOGLOBIN 11.4 g/dL (12.0-16.0); LYMPHOCYTES # (AUTO) 1.1 10^3/uL (1.5-3.5); LYMPHOCYTES % (AUTO) 18.2 %; MEAN CORPUSCULAR HEMOGLOBIN 31.2 pg (27.0-31.0); MEAN CORPUSCULAR HGB CONC 32.4 g/dL (32.0-36.0); MEAN CORPUSCULAR VOLUME 96.4 fL (81.0-99.0); MEAN PLATELET VOLUME 10.8 fL (7.9-10.8); MONOCYTES # (AUTO) 0.6 10^3/uL (0.0-1.0); MONOCYTES % (AUTO) 10.9 %; NEUTROPHILS # (AUTO) 3.9 10^3/uL (1.5-6.6); PLT - PLATELET COUNT 194 10^3/uL (130-450); RED BLOOD COUNT 3.65 10^6/uL (4.20-5.40); WHITE BLOOD COUNT 5.8 x10^3/uL (4.8-10.8)
[2020-01-14 06:26] LABS: CREATININE,URINE 50.8 mg/dL; TOTAL PROTEIN,URINE TIMED < 6 mg/dL
== END 2020-01-13 17:46 | disposition home or self-care (01) ==
LOC: LAB 17:45
PROVIDERS: ATTEND Internal Medicine Nephrology
DX: D70.9 Neutropenia, unspecified (principal); R80.9 Proteinuria, unspecified; N18.9 Chronic kidney disease, unspecified; D63.1 Anemia in chronic kidney disease
CPT/HCPCS: 36415; 82570; 84156; 85025

== ENCOUNTER 2020-01-14 16:23 | Outpatient (CLI) | payer MEDICARE, OTHER ==
[2020-01-14 17:21] LABS: CALCIUM 9.1 mg/dL (8.5-10.3); CREATININE 1.5 mg/dL (0.4-1.0)
[2020-01-18 11:02] LABS: GLOM BASEMENT MEMBRANE AB IGG <1.0 AI (<1.0)
[2020-01-18 15:11] LABS: COMPLEMENT COMPONENT C3C 89 mg/dL; COMPLEMENT COMPONENT C4C 20 mg/dL
== END 2020-01-14 16:24 | disposition home or self-care (01) ==
LOC: LAB 16:23
PROVIDERS: ATTEND Internal Medicine Nephrology
DX: M31.30 Wegener's granulomatosis without renal involvement (principal); N00.9 Acute nephritic syndrome with unspecified morphologic changes; I77.6 Arteritis, unspecified; I50.32 Chronic diastolic (congestive) heart failure; D47.2 Monoclonal gammopathy
CPT/HCPCS: 36415; 80048; 81599; 82570; 83520; 83880; 84155; 84156; 84165; 86021; 86160; 86334

== ENCOUNTER 2020-01-22 16:27 | Outpatient (CLI) | payer MEDICARE, OTHER ==
--- NOTE | 2020-01-22 18:31 | Ultrasound Report ---
PROCEDURE: Retroperitoneal INDICATIONS: ACUTE KIDNEY INJURY TECHNIQUE: Real-time scanning was performed of the retroperitoneal organs, with image documentation. COMPARISON: None. FINDINGS: Kidneys: The kidneys demonstrate mildly increased echogenicity. Right kidney measures 9.1 cm long; left kidney measures 10.3 cm long. Right renal cortical thickness is 1.1 cm; left renal cortical th ickness is 0.9 cm. No solid masses, hydronephrosis, or nephrolithiasis. Bladder: The prevoid bladder volume is 88 cc. The post void bladder volume is 20 cc. Both ureteral je ts can be seen. Miscellaneous: No free abdominal fluid. This study is limited by body habitus. This study is also limited by bowel gas. IMPRESSION: No acute abnormality is seen. There is no hydronephrosis. Mildly atrophic kidneys can be seen, with increased echogenicity, which is consistent with chronic me dical renal disease. Mild postvoid residual, 20 cc. Reviewed by: Torrey Cortes MD on 01/22/2020 5:30 PM [facility] Approved by: Torrey Cortes MD on 01/22/2020 5:30 PM [facility] Station ID: [id number]
== END 2020-01-22 16:28 | disposition home or self-care (01) ==
LOC: DI 16:27
PROVIDERS: ATTEND Internal Medicine Nephrology
DX: N17.9 Acute kidney failure, unspecified (principal)
CPT/HCPCS: 76770

== ENCOUNTER 2020-02-22 11:00 | Outpatient (CLI) | payer MEDICARE, OTHER ==
[2020-02-22 18:35] LABS: CREATININE 1.5 mg/dL (0.4-1.0)
== END 2020-02-22 23:59 ==
LOC: LAB.WCP 11:00
PROVIDERS: ATTEND Internal Medicine Nephrology
DX: N05.9 Unspecified nephritic syndrome with unspecified morphologic changes (principal)
CPT/HCPCS: 36415; 80048

== ENCOUNTER 2020-03-28 08:00 | Outpatient (CLI) | payer MEDICARE, OTHER ==
[2020-03-28 12:37] LABS: ALBUMIN 3.5 g/dL (3.2-5.5); ALBUMIN/GLOBULIN RATIO 1.3 (1.0-2.2); BILIRUBIN,TOTAL 0.7 mg/dL (0.2-1.0); CALCIUM 8.9 mg/dL (8.5-10.3); CREATININE 1.4 mg/dL (0.4-1.0); TOTAL PROTEIN 6.3 g/dL (6.7-8.2)
[2020-03-28 13:10] LABS: HEMOGLOBIN A1c% 6.5 % (4.27-6.07)
== END 2020-03-28 23:59 | disposition home or self-care (01) ==
LOC: LAB.WCP 08:00
PROVIDERS: ATTEND Physician Assistant Medical
DX: E11.59 Type 2 diabetes mellitus with other circulatory complications (principal); I48.0 Paroxysmal atrial fibrillation; N18.30 Chronic kidney disease, stage 3 unspecified; E78.00 Pure hypercholesterolemia, unspecified; E11.22 Type 2 diabetes mellitus with diabetic chronic kidney disease
CPT/HCPCS: 36415; 80048; 80053; 83036; 83735

== ENCOUNTER 2020-04-04 08:00 | Outpatient (CLI) | payer MEDICARE, OTHER ==
[2020-04-04 19:14] LABS: MICROALBUM/CREATININE RATIO,UR 47.4 ug/mg (<30.0); MICROALBUMIN,URINE 7.3 mg/dL (0-300.0)
== END 2020-04-04 23:59 | disposition home or self-care (01) ==
LOC: LAB.R 08:00
PROVIDERS: ATTEND Physician Assistant Medical
DX: E11.51 Type 2 diabetes mellitus with diabetic peripheral angiopathy without gangrene (principal)
CPT/HCPCS: 82043; 82570

== ENCOUNTER 2020-04-12 14:56 | Emergency (ER) | payer MEDICARE, OTHER ==
[2020-04-12] MEDS ORDERED: TETANUS/DIPHTHERIA/PERTUSSIS 0.5 ML SYRINGE IM ONE (15:16)
[2020-04-12] MEDS ORDERED: BUFFERED LIDOCAINE 10 ML SYRINGE SUBQ STA (15:16)
--- NOTE | 2020-04-12 15:20 | ED Physician Documentation ---
PD HPI MAJOR TRAUMA - Stated complaint Stated Complaint: GLF - Chief complaint Chief Complaint: Trauma Hd/Nk - History obtained from History obtained from: Patient, Family (daughter) - History of Present Illness Mechanism of injury: Fell Where injury occurred: Home Timing - onset: Today - Additional information Additional information: 84yo woman on eliquis for afib trip and fall in the driveway face first. Also hurt R hand, L shoulder and R knee. No LOC. Pain minimal. Tetanus unknown. Review of Systems Ten Systems: 10 systems reviewed and negative Constitutional: denies: Fever, Chills, Myalgias Nose: reports: Reviewed and negative Throat: reports: Reviewed and negative Cardiac: reports: Reviewed and negative Respiratory: reports: Reviewed and negative PD PAST MEDICAL HISTORY - Past Medical History Cardiovascular: Hypertension, High cholesterol, Coronary artery disease Respiratory: None Neuro: None Endocrine/Autoimmune: Type 2 diabetes, HyPOthyroidism GI: None CHAR FILTER OPERATOR: None : None HEENT: None Psych: None Musculoskeletal: None Derm: None - Past Surgical History Past Surgical History: No - Present Medications Home Medications: Ambulatory Orders Medication Instructions Recorded Confirmed Atorvastatin [Lipitor] 80 mg PO DAILY 08/27/15 03/08/19 Insulin Glargine,Hum.rec.anlog 8 unit SQ DAILY 08/27/15 03/08/19 [Lantus Solostar] Insulin Glulisine [Apidra Solostar] 6 unit SQ TIDWM 08/27/15 03/08/19 Levothyroxine [Synthroid] 137 mcg PO QDAC 08/27/15 03/08/19 Losartan Potassium 50 mg PO DAILY 08/27/15 03/08/19 Nitroglycerin [Nitrostat] 0.4 mg SL Q5M PRN 08/27/15 03/08/19 Amlodipine Besylate 10 mg PO BID 12/12/18 03/08/19 Isosorbide Dinitrate 120 mg PO DAILY 12/12/18 03/08/19 Apixaban [Eliquis] 5 mg PO BID 02/25/19 03/08/19 Furosemide 20 mg PO DAILY 02/25/19 03/08/19 Benzonatate [Tessalon Perle] 100 - 200 mg PO TID PRN #30 capsule 03/08/19 Doxycycline Hyclate 100 mg PO BID #20 capsule 11/04/19 Bacitracin Zinc Oint 1 applic TOP BID #1 tube 04/12/20 Cephalexin [Keflex] 500 mg PO Q6H #28 capsule 04/12/20 Ondansetron Odt [Zofran] 4 mg TL Q6H PRN #10 tablet 04/12/20 Tramadol HCl [Ultram] 50 mg PO Q6H PRN #15 tablet 04/12/20 - Allergies Allergies/Adverse Reactions: Allergies Allergy/AdvReac Type Severity Reaction Status Date / Time PHANI Inhibitors Allergy Unknown Verified 04/12/20 15:51 acetaminophen [From Tylenol] Allergy Unknown Verified 04/12/20 15:51 azithromycin [From Zithromax] Allergy Unknown Verified 04/12/20 15:51 Egg Derived Allergy Unknown Verified 04/12/20 15:51 - Social History Does the pt smoke?: No Smoking Status: Never smoker Does the pt drink ETOH?: No Does the pt have substance abuse?: No - Immunizations Immunizations are current?: Yes - POLST Patient has POLST: No PD ED PE NORMAL - Vitals Vital signs reviewed: Yes - General General: Alert and oriented X 3, No acute distress - HEENT HEENT: PERRL, EOMI, Other (Scrapes R forehead, bridge of nose. Upper lip abraded and swollen. No lacs needing sutures.) - Neck Neck: No bony TTP - Respiratory Respiratory: No respiratory distress, Clear bilaterally - Abdomen Abdomen: Non tender - Back Back: No CVA TTP, No spinal TTP - Extremities Extremities: Other (R hand with lac near palmar 5th MCP, Abraded tip of R 2nd finger. TTP L upper humerus. R knee NTTP/FROM.) - Neuro Neuro: Alert and oriented X 3, No motor deficit, No sensory deficit, Normal speech - Psych Psych: Normal mood, Normal affect Results - Vitals Vitals: Vital Signs - 24 hr 04/12/20 04/12/20 04/12/20 15:10 16:05 16:30 Temperature 36.4 C L Heart Rate 50 L 52 L 53 L Respiratory 14 17 17 Rate Blood Pressure 152/56 H 124/75 154/63 H O2 Saturation 100 97 97 Oxygen O2 Source Room air - Labs Labs: Laboratory Tests 04/12/20 04/12/20 15:28 15:28 WBC 6.8 RBC 3.58 L Hgb 11.4 L Hct 34.9 L MCV 97.5 MCH 31.8 H MCHC 32.7 RDW 13.9 Plt Count 173 MPV 10.3 Neut # (Auto) 5.3 Lymph # (Auto) 0.8 L [place] # (Auto) 0.5 Eos # (Auto) 0.1 Baso # (Auto) 0.0 Absolute Nucleated RBC 0.00 Nucleated RBC % 0.0 Sodium 139 Potassium 4.5 Chloride 106 Carbon Dioxide 24 Anion Gap 9.0 BUN 47 H Creatinine 1.7 H Estimated GFR (MDRD) 29 L Glucose 139 H Calcium 9.7 - Rads (name of study) R hand Radiology: EMP read contemporaneously (Mod displaced frx of 4th /5th frxs) R humerus Radiology: EMP read contemporaneously (neg) CT Head/face/Neck Radiology: EMP read contemporaneously (no traumatic findings) Procedures - Laceration (location) R hand Length in cm: 3 Wound type: Curved, Into subcut fat Neurovascular status: Sensory intact, Motor intact Tendon involvement: Tendon intact Anesthesia: Lidocaine 1%, With bicarb Wound Preparation: Chlorhexadine, Irrigated copiously NS Skin layer closure: Nylon, Interrupted, Size #-0 - enter number (4-0), Sutures - enter # (7) Other: Tetanus booster given Complexity: Simple - Splint (location) R hand Splint applied by: Tech Type of splint: Fiberglass, Short arm, Ulnar gutter Other: Patient tolerated well, No complications, Neurovascular intact PD MEDICAL DECISION MAKING - ED course ED course: The laceration is up by the MCP, it was thoroughly irrigated and explored. I really do not think this necessarily represents an open fracture but she was given Ancef and I put out a call to Meek López at 4:14 PM to call me back. Discussed by phone with Dr. Meek López who agrees is probably not open, agrees with antibiotics and follow-up as an outpatient, likely will need fixation of the metacarpal fractures. Departure - Departure Disposition: 01 Home, Self Care Clinical Impression: Fall from ground level, Adequate anticoagulation on anticoagulant therapy Fracture of fourth metacarpal bone of right hand Qualifiers: Encounter type: initial encounter Fracture type: closed Metacarpal location: base Fracture alignment: displaced Qualified Code(s): S62.314A - Displaced fracture of base of fourth metacarpal bone, right hand, initial encounter for closed fracture Fracture of fifth metacarpal bone of right hand Qualifiers: Encounter type: initial encounter Fracture type: closed Metacarpal location: base Fracture alignment: displaced Qualified Code(s): S62.316A - Displaced fracture of base of fifth metacarpal bone, right hand, initial encounter for closed fracture Laceration of right hand Qualifiers: Encounter type: initial encounter Foreign body presence: without foreign body Qualified Code(s): S61.411A - Laceration without foreign body of right hand, initial encounter Head injury Qualifiers: Encounter type: initial encounter Qualified Code(s): S09.90XA - Unspecified injury of head, initial encounter Facial abrasion Qualifiers: Encounter type: initial encounter Qualified Code(s): S00.81XA - Abrasion of other part of head, initial encounter Condition: Good Record reviewed to determine appropriate education?: Yes Instructions: ED Head Injury Closed, ED Laceration Hand Prescriptions: Bacitracin Zinc Oint 1 applic TOP BID #1 tube Cephalexin [Keflex] 500 mg PO Q6H #28 capsule Tramadol HCl [Ultram] 50 mg PO Q6H PRN #15 tablet PRN Reason: Pain Ondansetron Odt [Zofran] 4 mg TL Q6H PRN #10 tablet PRN Reason: Nausea / Vomiting Comments: For the scrapes on your face she can wash briefly with soap and water, then keep them greasy with the bacitracin ointment which I have prescribed. For the hand laceration and fracture you are to take the antibiotics and follow-up with orthopedics, next available appointment. The orthopedic surgeon here knows about you but you can also follow-up with your orthopedic surgeon with whom you already have a relationship. Return for new or worsening symptoms. Do not drink or drive while taking prescription pain medication. Call your kitchen stewardess also to let him know that you may have an upcoming minor hand surgery to see what he recommends that you do about your blood thinner.
[2020-04-12 15:35] LABS: BASOPHILS % (AUTO) 0.4 %; EOSINOPHILS # (AUTO) 0.1 10^3/uL (0.0-0.7); EOSINOPHILS % (AUTO) 1.5 %; HGB - HEMOGLOBIN 11.4 g/dL (12.0-16.0); LYMPHOCYTES # (AUTO) 0.8 10^3/uL (1.5-3.5); LYMPHOCYTES % (AUTO) 11.1 %; MEAN CORPUSCULAR HEMOGLOBIN 31.8 pg (27.0-31.0); MEAN CORPUSCULAR HGB CONC 32.7 g/dL (32.0-36.0); MEAN CORPUSCULAR VOLUME 97.5 fL (81.0-99.0); MEAN PLATELET VOLUME 10.3 fL (7.9-10.8); MONOCYTES # (AUTO) 0.5 10^3/uL (0.0-1.0); MONOCYTES % (AUTO) 7.8 %; NEUTROPHILS # (AUTO) 5.3 10^3/uL (1.5-6.6); NEUTROPHILS % (AUTO) 78.9 %; PLT - PLATELET COUNT 173 10^3/uL (130-450); RED BLOOD COUNT 3.58 10^6/uL (4.20-5.40); RED CELL DISTRIBUTION WIDTH 13.9 % (12.0-15.0); WHITE BLOOD COUNT 6.8 x10^3/uL (4.8-10.8)
[2020-04-12 15:43] LABS: CALCIUM 9.7 mg/dL (8.5-10.3); CREATININE 1.7 mg/dL (0.4-1.0)
--- NOTE | 2020-04-12 15:52 | CT Report ---
PROCEDURE: MAXILLOFACIAL WO INDICATIONS: facial inj TECHNIQUE: Noncontrast 1.5 mm thick axial images acquired from the mandible through the frontal sinuses, with co isis and sagittal reformatting. For radiation dose reduction, the following was used: automated ex posure control, adjustment of mA and/or kV according to patient size. COMPARISON: Correlation is made with the accompanying head CT and cervical spine CT, 04/12/2020. FINDINGS: Image quality: Excellent. Bones and teeth: Orbital muse are intact. Sinus muse show no fracture or deformity. Nasal bones and septum are intact. Visualized portions of the mandible demonstrate no fractures or subluxation. Zygomatic arches are intact. Pterygoid plates are intact. Visualized portions of the skull base an d auditory canals are intact. Degenerative changes are seen, including involving the visualized cervical spine and the temporomandi bular joints. Sinuses: Paranasal sinuses are aerated, without fluid levels, mucosal thickening, or mucoceles. Mas toid air cells are aerated. Soft tissues: No edema, masses, or fluid collections. No enlarged lymph nodes. No soft tissue lace rations or debris. Vascular: Visualized vascular structures appear normal in the absence of contrast. Bony vascular fo ramina and canals are intact. Atherosclerotic calcification is seen. IMPRESSION: No displaced facial bone fractures are seen. Reviewed by: Torrey Cortes MD on 04/12/2020 2:50 PM [facility] Approved by: Torrey Cortes MD on 04/12/2020 2:50 PM [facility] Station ID: [id number]
--- NOTE | 2020-04-12 15:53 | CT Report ---
PROCEDURE: HEAD WO INDICATIONS: head injury TECHNIQUE: Noncontrast 4.5 mm thick angled axial sections acquired from the foramen magnum to the vertex. For r adiation dose reduction, the following was used: automated exposure control, adjustment of mA and/or kV according to patient size. COMPARISON: Correlation is made with the accompanying maxillofacial CT and cervical spine CT examina tions, 04/12/2020. FINDINGS: Image quality: Excellent. CSF spaces: Basal cisterns are patent. No extra-axial fluid collections. Ventricles are normal in size and shape. Brain: No midline shift. No intracranial masses or hemorrhage. Brain parenchymal volume loss and ch ronic small vessel ischemic change can be seen. Lee-white matter interface is normal. Skull and face: Calvarium and visualized facial bones are intact, without suspicious lesions. Sinuses: Visualized sinuses and mastoids are clear. IMPRESSION: No intracranial hemorrhage is seen. Age-appropriate brain parenchymal volume loss and chronic small vessel ischemic change can be seen. Reviewed by: Torrey Cortes MD on 04/12/2020 2:51 PM [facility] Approved by: Torrey Cortes MD on 04/12/2020 2:51 PM [facility] Station ID: [id number]
--- NOTE | 2020-04-12 15:55 | CT Report ---
PROCEDURE: CERVICAL SPINE WO INDICATIONS: head injury TECHNIQUE: Noncontrast 3 mm thick sections acquired from the skull base to the T4 level. Sagittal and coronal r eformats were then constructed. For radiation dose reduction, the following was used: automated exp osure control, adjustment of mA and/or kV according to patient size. COMPARISON: Correlation is made with the examination head CT and maxillofacial CT, 04/12/2020. FINDINGS: Image quality: Excellent. Bones: No fractures or dislocations. Visualized superior ribs are intact. Degenerative changes are seen, which are most prominent inferiorly, with at least moderate disc space narrowing at C5-C6 and the C6-C7. Focal degenerative change can also be seen involving the C1-C2 int erface anteriorly. Milder degenerative changes are seen elsewhere. Soft tissues: Prevertebral soft tissues are normal in thickness. No paravertebral hematomas. No ap ical pneumothoraces. Incidental note is made of metallic clips along the medial aspect of the left c lavicular head, as on series 7 image 15 and on series 5 image 63. IMPRESSION: No displaced fractures can be seen. Degenerative changes are seen, which are most prominent involving the C1-C2 interface and the lower c ervical spine. Reviewed by: Torrey Cortes MD on 04/12/2020 2:53 PM [facility] Approved by: Torrey Cortes MD on 04/12/2020 2:53 PM [facility] Station ID: [id number]
--- NOTE | 2020-04-12 16:00 | XRAY Report ---
PROCEDURE: Humerus LT INDICATIONS: arm injury TECHNIQUE: 2 views of the humerus were acquired. COMPARISON: None FINDINGS: Bones: No fractures or dislocations. No suspicious bony lesions. Soft tissues: No suspicious soft tissue calcifications. IMPRESSION: No fracture Reviewed by: Subhash Griggs MD on 04/12/2020 3:58 PM PST Approved by: Subhash Griggs MD on 04/12/2020 3:58 PM PST Station ID: [id number]
--- NOTE | 2020-04-12 16:02 | XRAY Report ---
PROCEDURE: Hand 3 View RT INDICATIONS: hand injury TECHNIQUE: 3 views of the hand(s) acquired. COMPARISON: Hand radiographs 05/07/2018 FINDINGS: Moderately displaced and impacted fractures of the fourth and fifth metacarpal bases. There is intra- articular extension Soft tissues: No suspicious soft tissue calcifications. Scattered vascular calcifications. IMPRESSION: Moderately displaced fourth and fifth metacarpal base fractures Reviewed by: Subhash Griggs MD on 04/12/2020 4:01 PM PST Approved by: Subhash Griggs MD on 04/12/2020 4:01 PM PST Station ID: [id number]
[2020-04-12] MEDS ORDERED: ceFAZolin 1 GM VIAL IM STA (16:13)
[2020-04-12 17:00] VITALS: BP 159/65
== END 2020-04-12 17:05 | disposition home or self-care (01) ==
LOC: ED 14:56
DX: S62.314A Displaced fracture of base of fourth metacarpal bone, right hand, initial encounter for closed fracture (principal); S62.316A Displaced fracture of base of fifth metacarpal bone, right hand, initial encounter for closed fracture; S00.511A Abrasion of lip, initial encounter; S00.81XA Abrasion of other part of head, initial encounter; S09.90XA Unspecified injury of head, initial encounter; W01.0XXA Fall on same level from slipping, tripping and stumbling without subsequent striking against object, initial encounter; Y93.01 Activity, walking, marching and hiking; Y92.008 Other place in unspecified non-institutional (private) residence as the place of occurrence of the external cause; I10 Essential (primary) hypertension; E11.9 Type 2 diabetes mellitus without complications; I48.91 Unspecified atrial fibrillation; Z79.01 Long term (current) use of anticoagulants; Z79.4 Long term (current) use of insulin; Z95.1 Presence of aortocoronary bypass graft; I25.2 Old myocardial infarction; Z23 Encounter for immunization
CPT/HCPCS: 12002; 29125; 36415; 70450; 70486; 72125; 80048; 85025; 90471; 99284

== ENCOUNTER 2020-06-14 07:00 | Outpatient (CLI) | payer MEDICARE, OTHER ==
[2020-06-14 16:08] LABS: MEAN CORPUSCULAR HEMOGLOBIN 31.4 pg (27.0-31.0); MEAN CORPUSCULAR HGB CONC 30.9 g/dL (32.0-36.0); MEAN CORPUSCULAR VOLUME 101.7 fL (81.0-99.0); MEAN PLATELET VOLUME 10.2 fL (7.9-10.8); RED BLOOD COUNT 3.5 10^6/uL (4.20-5.40); RED CELL DISTRIBUTION WIDTH 14.4 % (12.0-15.0); WHITE BLOOD COUNT 5.2 x10^3/uL (4.8-10.8)
[2020-06-14 16:34] LABS: CALCIUM 9.2 mg/dL (8.5-10.3); CREATININE 1.3 mg/dL (0.4-1.0); PHOSPHORUS 3.4 mg/dL (2.5-4.6)
[2020-06-15 07:27] LABS: CREATININE,URINE 181.7 mg/dL; PROTEIN/CREATININE RATIO,URINE 0.1 (<=0.2)
== END 2020-06-14 23:59 | disposition home or self-care (01) ==
LOC: LAB 07:00
PROVIDERS: ATTEND Internal Medicine Nephrology
DX: N05.9 Unspecified nephritic syndrome with unspecified morphologic changes (principal); D70.9 Neutropenia, unspecified; D63.1 Anemia in chronic kidney disease; E83.30 Disorder of phosphorus metabolism, unspecified; N25.81 Secondary hyperparathyroidism of renal origin; R80.9 Proteinuria, unspecified
CPT/HCPCS: 36415; 80048; 82570; 83970; 84100; 84156; 85027

== ENCOUNTER 2020-06-27 07:16 | Outpatient (CLI) | payer MEDICARE, OTHER ==
[2020-06-27 11:52] LABS: ALBUMIN 3.7 g/dL (3.2-5.5); ALBUMIN/GLOBULIN RATIO 1.4 (1.0-2.2); ALKALINE PHOSPHATASE 62 IU/L (42-121); ALT ALANINE AMINOTRANSFERASE 15 IU/L (10-60); AST ASPARTATE AMINOTRANSFERASE 19 IU/L (10-42); BILIRUBIN,TOTAL 0.9 mg/dL (0.2-1.0); BUN - BLOOD UREA NITROGEN 34 mg/dL (6-20); CALCIUM 9.1 mg/dL (8.5-10.3); CARBON DIOXIDE - CO2 21 mmol/L (21-32); CHLORIDE 108 mmol/L (101-111); CHOL/HDL RATIO 1.9 (<4.4); CHOLESTEROL 114 mg/dL; CREATININE 1.3 mg/dL (0.4-1.0); GLUCOSE 166 mg/dL (70-100); HDL CHOLESTEROL 59 mg/dL; LDL CHOLESTEROL,CALCULATED 40 mg/dL; LDL/HDL RATIO 0.7 (<4.4); TOTAL PROTEIN 6.4 g/dL (6.7-8.2); VLDL CHOLESTEROL 15 mg/dL
[2020-06-27 12:42] LABS: HEMOGLOBIN A1c% 6.5 % (4.27-6.07)
== END 2020-06-27 07:17 | disposition home or self-care (01) ==
LOC: LAB.N 07:16
PROVIDERS: ATTEND Physician Assistant Medical
DX: E11.59 Type 2 diabetes mellitus with other circulatory complications (principal)
CPT/HCPCS: 36415; 80053; 80061; 83036; 83721

== ENCOUNTER 2020-09-27 08:00 | Outpatient (CLI) | payer MEDICARE, OTHER ==
[2020-09-27 11:59] LABS: CALCIUM 8.8 mg/dL (8.5-10.3); CREATININE 1.5 mg/dL (0.4-1.0); POTASSIUM 4.2 mmol/L (3.5-5.0)
[2020-09-27 12:26] LABS: ESTIMATED AVERAGE GLUCOSE 131 mg/dL (70-100); HEMOGLOBIN A1c% 6.2 % (4.27-6.07)
== END 2020-09-27 23:59 | disposition home or self-care (01) ==
LOC: LAB.WCP 08:00
PROVIDERS: ATTEND Physician Assistant Medical
DX: E11.59 Type 2 diabetes mellitus with other circulatory complications (principal)
CPT/HCPCS: 36415; 80048; 83036

== ENCOUNTER 2020-10-24 08:13 | Outpatient (CLI) | payer MEDICARE, OTHER ==
[2020-10-24 11:48] LABS: ALBUMIN 3.6 g/dL (3.2-5.5); ALBUMIN/GLOBULIN RATIO 1.3 (1.0-2.2); CALCIUM 9.1 mg/dL (8.5-10.3); CREATININE 1.3 mg/dL (0.4-1.0); TOTAL PROTEIN 6.4 g/dL (6.7-8.2)
== END 2020-10-24 08:14 | disposition home or self-care (01) ==
LOC: LAB.N 08:13
PROVIDERS: ATTEND Specialist
DX: E78.00 Pure hypercholesterolemia, unspecified (principal); I48.0 Paroxysmal atrial fibrillation
CPT/HCPCS: 36415; 80053; 80061; 81599; 83704; 83735

== ENCOUNTER 2021-01-02 07:55 | Outpatient (CLI) | payer MEDICARE, OTHER ==
[2021-01-02 12:10] LABS: ALBUMIN 3.8 g/dL (3.2-5.5); ALBUMIN/GLOBULIN RATIO 1.2 (1.0-2.2); ALKALINE PHOSPHATASE 64 IU/L (42-121); ALT ALANINE AMINOTRANSFERASE 19 IU/L (10-60); AST ASPARTATE AMINOTRANSFERASE 21 IU/L (10-42); BUN - BLOOD UREA NITROGEN 34 mg/dL (6-20); CALCIUM 9.4 mg/dL (8.5-10.3); CARBON DIOXIDE - CO2 24 mmol/L (21-32); CHLORIDE 108 mmol/L (101-111); CHOL/HDL RATIO 1.9 (<4.4); CHOLESTEROL 126 mg/dL; CREATININE 1.4 mg/dL (0.4-1.0); GFR - MDRD 36 (>89); GLUCOSE 138 mg/dL (70-100); HDL CHOLESTEROL 67 mg/dL; LDL CHOLESTEROL,CALCULATED 45 mg/dL; LDL/HDL RATIO 0.7 (<4.4); POTASSIUM 4.5 mmol/L (3.5-5.0); SODIUM 142 mmol/L (135-145); TOTAL PROTEIN 6.9 g/dL (6.7-8.2); TRIGLYCERIDES 72 mg/dL; VLDL CHOLESTEROL 14 mg/dL
[2021-01-02 13:50] LABS: ESTIMATED AVERAGE GLUCOSE 140 mg/dL (70-100); HEMOGLOBIN A1c% 6.5 % (4.27-6.07)
== END 2021-01-02 07:56 | disposition home or self-care (01) ==
LOC: LAB.N 07:55
PROVIDERS: ATTEND Physician Assistant Medical
DX: E11.59 Type 2 diabetes mellitus with other circulatory complications (principal)
CPT/HCPCS: 36415; 80053; 80061; 83036; 83721

== ENCOUNTER 2021-02-08 12:36 | Outpatient (CLI) | payer MEDICARE, OTHER ==
--- NOTE | 2021-02-09 07:45 | Mammography Report ---
BILATERAL DIGITAL SCREENING MAMMOGRAM 3D/2D: 02/08/2021 CLINICAL: Routine screening. Comparison is made to exams dated: 12/28/2018 mammogram, 10/02/2017 mammogram - [facility], and 05/07/2016 mammogram - [facility]. The tissue of both breasts is predominantly fatty. There is a biopsy clip in the left breast. There are grouped calcifications in the right breast at 8 o'clock posterior depth. These are increas ed in number. No other significant masses, calcifications, or other findings are seen in either breast. IMPRESSION: INCOMPLETE: NEEDS ADDITIONAL IMAGING EVALUATION The grouped calcifications in the right breast are indeterminate. Magnification, lateral, and additi onal views are recommended. This exam was interpreted at Station ID: [id number]. NOTE: For mammograms, a report in lay terms will be sent to the patient. Approximately 15% of breast malignancies will not be visualized mammographically. In the management of a palpable breast mass, a negative mammogram must not discourage biopsy of a clinically suspicious lesion. Electronically Signed By: Fantasma sanderson/cyn:02/08/2021 17:00:42 ACR BI-RADS Category 0: Incomplete 3340F PARENCHYMAL PATTERN: (F) - The breast(s) demonstrate(s) diffuse fatty replacement. BI-RADS CATEGORY: (0) - 0 RECOMMENDATION: (ADDMAM) - Recommend additional mammographic views. [id number] Immediate follow-up LATERALITY: (R)
== END 2021-02-08 12:37 | disposition home or self-care (01) ==
LOC: DI 12:36
DX: Z12.31 Encounter for screening mammogram for malignant neoplasm of breast (principal); R92.8 Other abnormal and inconclusive findings on diagnostic imaging of breast

== ENCOUNTER 2021-03-21 12:28 | Outpatient (CLI) | payer MEDICARE, OTHER ==
--- NOTE | 2021-03-22 09:20 | Mammography Report ---
UNILATERAL RIGHT DIGITAL DIAGNOSTIC MAMMOGRAM 3D/2D: 03/21/2021 CLINICAL: Patient returns for magnification views of microcalcifications in the right breast. Comparison is made to exams dated: 02/08/2021 mammogram, 12/28/2018 mammogram, and 10/02/2017 mammogram - [facility]. The tissue of right breast is predominantly fatty. There are 0.4 cm grouped heterogeneous calcifications in the right breast at 9 o'clock posterior dept h. These are seen in additional views. These are increased in number. No other significant masses or calcifications are seen in the breast. IMPRESSION: PROBABLY BENIGN The 0.4 cm grouped heterogeneous calcifications in the right breast are probably benign. A follow-up right mammogram in 6 months is recommended to demonstrate stability. This exam was interpreted at Station ID: [id number]. NOTE: For mammograms, a report in lay terms will be sent to the patient. Approximately 15% of breast malignancies will not be visualized mammographically. In the management of a palpable breast mass, a negative mammogram must not discourage biopsy of a clinically suspicious lesion. Electronically Signed By: Fantasma sanderson/cyn:03/21/2021 13:38:21 ACR BI-RADS Category 3: Probably benign 3343F PARENCHYMAL PATTERN: (F) - The breast(s) demonstrate(s) diffuse fatty replacement. BI-RADS CATEGORY: (3) - 3 Mammogram [id number] 6 month follow-up LATERALITY: (R)
== END 2021-03-21 12:29 | disposition home or self-care (01) ==
LOC: DI 12:28
PROVIDERS: ATTEND Physician Assistant Medical
DX: R92.1 Mammographic calcification found on diagnostic imaging of breast (principal)

== ENCOUNTER 2021-04-03 08:00 | Outpatient (CLI) | payer MEDICARE, OTHER ==
[2021-04-03 12:05] LABS: CALCIUM 9.3 mg/dL (8.5-10.3); CREATININE 1.4 mg/dL (0.4-1.0); POTASSIUM 4.2 mmol/L (3.5-5.0)
[2021-04-03 12:43] LABS: ESTIMATED AVERAGE GLUCOSE 137 mg/dL (70-100); HEMOGLOBIN A1c% 6.4 % (4.27-6.07)
[2021-04-03 12:56] LABS: CREATININE,URINE 91.1 mg/dL; MICROALBUM/CREATININE RATIO,UR 126.2 ug/mg (<30.0); MICROALBUMIN,URINE 11.5 mg/dL (0-300.0)
== END 2021-04-03 23:59 ==
LOC: LAB.WCP 08:00
PROVIDERS: ATTEND Physician Assistant Medical
DX: E11.59 Type 2 diabetes mellitus with other circulatory complications (principal)
CPT/HCPCS: 36415; 80048; 82043; 82570; 83036

== ENCOUNTER 2021-05-08 08:06 | Outpatient (CLI) | payer MEDICARE, OTHER ==
[2021-05-08 12:39] LABS: ALBUMIN 3.7 g/dL (3.2-5.5); ALBUMIN/GLOBULIN RATIO 1.3 (1.0-2.2); BILIRUBIN,TOTAL 0.7 mg/dL (0.2-1.0); CREATININE 1.4 mg/dL (0.4-1.0); POTASSIUM 4.3 mmol/L (3.5-5.0); TOTAL PROTEIN 6.5 g/dL (6.7-8.2)
== END 2021-05-08 08:07 | disposition home or self-care (01) ==
LOC: LAB.N 08:06
PROVIDERS: ATTEND Specialist
DX: I48.0 Paroxysmal atrial fibrillation (principal); E78.2 Mixed hyperlipidemia; R00.1 Bradycardia, unspecified
CPT/HCPCS: 36415; 80053; 80061; 83721; 83735; 84443

== ENCOUNTER 2021-05-12 09:23 | Outpatient (CLI) | payer MEDICARE, OTHER | END 2021-05-12 09:24 | disposition home or self-care (01) | LOC: LAB.N 09:23 | PROVIDERS: ATTEND Specialist | DX: E78.2 Mixed hyperlipidemia (principal); I48.0 Paroxysmal atrial fibrillation | CPT/HCPCS: 81599; 83704 ==

== ENCOUNTER 2021-07-03 08:19 | Outpatient (CLI) | payer MEDICARE, OTHER ==
[2021-07-03 12:17] LABS: ESTIMATED AVERAGE GLUCOSE 143 mg/dL (70-100); HEMOGLOBIN A1c% 6.6 % (4.27-6.07)
[2021-07-03 12:26] LABS: THYROID STIMULATING HORMONE 5.32 uIU/mL (0.34-5.60)
[2021-07-03 12:36] LABS: ALBUMIN 3.6 g/dL (3.2-5.5); ALBUMIN/GLOBULIN RATIO 1.3 (1.0-2.2); ALKALINE PHOSPHATASE 62 IU/L (42-121); ALT ALANINE AMINOTRANSFERASE 18 IU/L (10-60); AST ASPARTATE AMINOTRANSFERASE 21 IU/L (10-42); BILIRUBIN,TOTAL 1.1 mg/dL (0.2-1.0); BUN - BLOOD UREA NITROGEN 42 mg/dL (6-20); CALCIUM 9.2 mg/dL (8.5-10.3); CARBON DIOXIDE - CO2 24 mmol/L (21-32); CHLORIDE 106 mmol/L (101-111); CHOL/HDL RATIO 1.9 (<4.4); CHOLESTEROL 120 mg/dL; CREATININE 1.5 mg/dL (0.4-1.0); GFR - MDRD 33 (>89); GLUCOSE 134 mg/dL (70-100); HDL CHOLESTEROL 64 mg/dL; LDL CHOLESTEROL,CALCULATED 43 mg/dL; LDL/HDL RATIO 0.7 (<4.4); POTASSIUM 4.1 mmol/L (3.5-5.0); SODIUM 141 mmol/L (135-145); TOTAL PROTEIN 6.4 g/dL (6.7-8.2); TRIGLYCERIDES 63 mg/dL; VLDL CHOLESTEROL 13 mg/dL
== END 2021-07-03 08:20 | disposition home or self-care (01) ==
LOC: LAB.N 08:19
PROVIDERS: ATTEND Physician Assistant Medical
DX: E78.5 Hyperlipidemia, unspecified (principal); E03.9 Hypothyroidism, unspecified; E11.59 Type 2 diabetes mellitus with other circulatory complications
CPT/HCPCS: 36415; 80053; 80061; 83036; 83721; 84443

== ENCOUNTER 2021-09-05 04:34 | Emergency (ER) | payer MEDICARE, OTHER ==
[2021-09-05] MEDS ORDERED: LIDOCAINE PATCH 5% TOP STA (05:13)
[2021-09-05 05:53] LABS: BASOPHILS % (AUTO) 0.3 %; EOSINOPHILS # (AUTO) 0.1 10^3/uL (0.0-0.7); EOSINOPHILS % (AUTO) 2.1 %; HCT - HEMATOCRIT 34.3 % (37.0-47.0); HGB - HEMOGLOBIN 11.5 g/dL (12.0-16.0); LYMPHOCYTES # (AUTO) 0.9 10^3/uL (1.5-3.5); MEAN CORPUSCULAR HEMOGLOBIN 31.9 pg (27.0-31.0); MEAN CORPUSCULAR HGB CONC 33.5 g/dL (32.0-36.0); MEAN CORPUSCULAR VOLUME 95.3 fL (81.0-99.0); MEAN PLATELET VOLUME 10.9 fL (7.9-10.8); MONOCYTES # (AUTO) 0.6 10^3/uL (0.0-1.0); MONOCYTES % (AUTO) 9.4 %; NEUTROPHILS # (AUTO) 4.4 10^3/uL (1.5-6.6); PLT - PLATELET COUNT 180 10^3/uL (130-450); RED CELL DISTRIBUTION WIDTH 14.3 % (12.0-15.0); WHITE BLOOD COUNT 6.1 x10^3/uL (4.8-10.8)
[2021-09-05 05:59] LABS: CALCIUM 9.4 mg/dL (8.5-10.3); CREATININE 1.5 mg/dL (0.4-1.0); POTASSIUM 4.2 mmol/L (3.5-5.0)
--- NOTE | 2021-09-05 06:00 | ED Physician Documentation ---
History of Present Illness - Stated complaint Stated Complaint: BACK PX - Chief complaint Chief Complaint: Back Pain - History obtained from History obtained from: Patient - Additonal information Additional information: Patient is an 86-year-old female with a history of A. fib on Eliquis presenting for evaluation of of her back pain that has been present since 4 PM yesterday. Patient reports doing a lot of work including shredding andLifting items and believes she could have strained her back.Pain is sharp and constant. It does not radiate elsewhere. Movement makes it worse. She was able to sleep until 3:00 this morning when it woke her up.She took 2 nitro without any improvement. She reports that in the past she has had cardiac related pain but that is higher it between the shoulder blades and this does not feel similar. She denies chest pain, difficulty breathing, cough, congestion, fever, abdominal pain, vomiting, numbness or tingling. Review of Systems Constitutional: denies: Fever Nose: denies: Congestion Cardiac: denies: Chest pain / pressure, Palpitations Respiratory: denies: Dyspnea, Cough GI: denies: Abdominal Pain, Vomiting : denies: Dysuria Skin: denies: Rash Musculoskeletal: reports: Back pain. 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 : None HEENT: None Psych: None Musculoskeletal: None Derm: None - Past Surgical History Past Surgical History: No - Present Medications Home Medications: Ambulatory Orders Medication Instructions Recorded Confirmed Atorvastatin [Lipitor] 80 mg PO DAILY 08/27/15 09/05/21 Insulin Glargine,Hum.rec.anlog 6 unit SQ DAILY 08/27/15 09/05/21 [Lantus Solostar] Insulin Glulisine [Apidra Solostar] 6 unit SQ TIDWM 08/27/15 09/05/21 Levothyroxine [Synthroid] 150 mcg PO QDAC 08/27/15 09/05/21 Losartan Potassium 50 mg PO BID 08/27/15 09/05/21 Nitroglycerin [Nitrostat] 0.4 mg SL Q5M PRN 08/27/15 09/05/21 Amlodipine Besylate 10 mg PO BID 12/12/18 09/05/21 Isosorbide Dinitrate 120 mg PO DAILY 12/12/18 09/05/21 Apixaban [Eliquis] 5 mg PO BID 02/25/19 09/05/21 Furosemide [Lasix] 20 mg PO DAILY 09/05/21 09/05/21 Hydralazine HCl 100 mg PO TID 09/05/21 09/05/21 Lidocaine Patch 5% [Lidoderm Patch] 1 patch TOP DAILY PRN #10 patch 09/05/21 Ranolazine [Ranexa] 500 mg PO BID 09/05/21 09/05/21 - Allergies Allergies/Adverse Reactions: Allergies Allergy/AdvReac Type Severity Reaction Status Date / Time PHANI Inhibitors Allergy Unknown Verified 09/05/21 04:47 acetaminophen [From Tylenol] Allergy Unknown Verified 09/05/21 04:47 azithromycin [From Zithromax] Allergy Unknown Verified 09/05/21 04:47 Egg Derived Allergy Unknown Verified 09/05/21 04:47 - Social History Does the pt smoke?: No Smoking Status: Never smoker Does the pt drink ETOH?: No Does the pt have substance abuse?: No - Immunizations Immunizations are current?: Yes - POLST Patient has POLST: No PD ED PE NORMAL - General General: Alert and oriented X 3, No acute distress, Well developed/nourished, Other (Hard of hearing) - HEENT HEENT: Atraumatic, Moist mucous membranes - Neck Neck: Supple, no meningeal sign, No bony TTP - Cardiac Cardiac: RRR, No murmur, Strong equal pulses - Abdomen Abdomen: Normal bowel sounds, Soft, Non tender - Back Back: No spinal TTP - Derm Derm: Normal color, No rash - Extremities Extremities: No deformity, No edema - Neuro Neuro: Normal speech - Psych Psych: Normal mood PD ED PE EXPANDED - Back Back: Soft tissue tenderness Back visual: 1 - tenderness Results - Vitals Vitals: Vital Signs - 24 hr 09/05/21 07:30 Heart Rate 56 L Respiratory 14 Rate Blood Pressure 143/50 H O2 Saturation 97 Oxygen O2 Source Room air - EKG (time done) 0580 Rate: Rate (enter#) (56) Rhythm: Sinus bradycardia Intervals: RBBB QRS: No: Normal Ischemia: No: ST elevation c/w ischemia, ST depression - Labs Labs: Laboratory Tests 09/05/21 09/05/21 09/05/21 05:44 05:44 05:44 WBC 6.1 RBC 3.60 L Hgb 11.5 L Hct 34.3 L MCV 95.3 MCH 31.9 H MCHC 33.5 RDW 14.3 Plt Count 180 MPV 10.9 H Neut # (Auto) 4.4 Lymph # (Auto) 0.9 L Trego # (Auto) 0.6 Eos # (Auto) 0.1 Baso # (Auto) 0.0 Absolute Nucleated RBC 0.00 Nucleated RBC % 0.0 Sodium 143 Potassium 4.2 Chloride 108 Carbon Dioxide 24 Anion Gap 11.0 BUN 39 H Creatinine 1.5 H Estimated GFR (MDRD) 33 L Glucose 159 H Calcium 9.4 Troponin I High Sens 37.6 H* 09/05/21 07:06 WBC RBC Hgb Hct MCV MCH MCHC RDW Plt Count MPV Neut # (Auto) Lymph # (Auto) Trego # (Auto) Eos # (Auto) Baso # (Auto) Absolute Nucleated RBC Nucleated RBC % Sodium Potassium Chloride Carbon Dioxide Anion Gap BUN Creatinine Estimated GFR (MDRD) Glucose Calcium Troponin I High Sens 36.9 H* PD MEDICAL DECISION MAKING - ED course ED course: 644 - Patient feeling better, denies any back pain. Reviewed labs with patient including abnormal troponin. Patient has not previously had troponin testing here. Aware of need for second troponin.Also reviewed x-ray findings withPersistent consolidation within the lingula with trace left pleural effusio n. Patient denies any symptoms to suggest infection such as fever, cough, congestion, trouble breathing. Discussed this finding with patient and her daughter who are aware of need for close follow-up with primary care doctor as this consolidation was also seen in 2019 Patient does not currently have symptoms to suggest an infection. Pt evaluated for R upper thoracic pain that seems to worsen with palpation and movement after repetitive lifting yesterday. Pain present > 6 hrs and EKG without signs of acute ischemia, rpt troponin unchanged. ACS seems unlikely. Doubt PE or dissection - no SOB or migration of pain. Pain improved in ED. Reviewed findings on XR and need for follow up as well as return precautions. Departure - Departure Disposition: 01 Home, Self Care Clinical Impression: Upper back pain on right side Condition: Stable Instructions: ED Back Care Tips Prescriptions: Lidocaine Patch 5% [Lidoderm Patch] 1 patch TOP DAILY PRN #10 patch PRN Reason: pain Comments: You were evaluated for pain to the right upper back. This pain appears likely musculoskeletal as there is an area of tenderness. It did improve with a lidocaine patch and I have sent a prescription for these patches to the [facility] in [place]. We did also evaluate your heart. Your chest x-ray showed an area of consolidation within the left lung. This was also seen on your CT scan in 2019. You do not have symptoms to suggest an infection today so I do not think you need antibiotics but I would recommend having close follow-up with your primary care doctor as you may need another CT scan of your chest To see what is causing this abnormality. Discharge Date/Time: 09/05/21 07:50
[2021-09-05 07:39] VITALS: BP 143/50
--- NOTE | 2021-09-05 08:27 | XRAY Report ---
PROCEDURE: Chest 1 View X-Ray INDICATIONS: pain TECHNIQUE: One view of the chest was acquired. COMPARISON: April 21, 2019. FINDINGS: SUPPORT DEVICES: Redemonstrated sternotomy wires and evidence of CABG. LUNGS/PLEURA: Redemonstrated density in the peripheral left lower lung zone, which may reflect pleura l thickening and/or fluid. Coarsened interstitial markings. No pneumothorax. MEDIASTINUM: Enlargement of chronic silhouette. BONES/SOFT TISSUES: No acute abnormality. Eventration of the right diaphragm. IMPRESSION: 1.No significant interval change. Concordant interpretation with preliminary report. Reviewed by: Fran Ramirez MD on 09/05/2021 8:26 AM PDT Approved by: Fran Ramirez MD on 09/05/2021 8:26 AM PDT Station ID: [id number]
== END 2021-09-05 07:50 | disposition home or self-care (01) ==
LOC: ED 04:34
DX: M54.6 Pain in thoracic spine (principal); R77.8 Other specified abnormalities of plasma proteins; I48.91 Unspecified atrial fibrillation; Z79.01 Long term (current) use of anticoagulants; I10 Essential (primary) hypertension
CPT/HCPCS: 36415; 71045; 80048; 84484; 85025; 93005; 99284; A9270

== ENCOUNTER 2021-10-16 08:00 | Outpatient (CLI) | payer MEDICARE, OTHER | END 2021-10-16 23:59 | disposition home or self-care (01) | LOC: LAB.R 08:00 | PROVIDERS: ATTEND Physician Assistant Medical | DX: J06.9 Acute upper respiratory infection, unspecified (principal); Z20.822 Contact with and (suspected) exposure to COVID-19 ==

== ENCOUNTER 2021-11-06 12:27 | Outpatient (CLI) | payer MEDICARE, OTHER ==
--- NOTE | 2021-11-07 08:29 | Mammography Report ---
UNILATERAL RIGHT DIGITAL DIAGNOSTIC MAMMOGRAM 3D/2D: 11/06/2021 CLINICAL: Patient returns for 6 month follow up on right breast calcifications. Comparison is made to exams dated: 03/21/2021 mammogram, 02/08/2021 mammogram, 12/28/2018 mammogram, mammogram - [facility], 05/07/2016 mammogram, and 04/10/2015 mammogram - [facility]. The tissue of right breast is predominantly fatty. There are stable 0.4 cm grouped dystrophic and heterogeneous calcifications in the right breast at 9 o'clock posterior depth. No other significant masses or calcifications are seen in the breast. IMPRESSION: PROBABLY BENIGN Stable grouped dystrophic and heterogeneous calcifications in the right breast are probably benign. A follow-up mammogram in 6 months is recommended to demonstrate stability. Patient will be due for left breast mammogram at that time. Exam findings were conveyed to the patient. Based on the Tyrer Cuzick model (a risk assessment model) the patients lifetime risk is 0.1% and her 10 year risk is 0.0%. According to the ACR, ACS, and NCCN guidelines, an annual breast MRI exam karen g with mammogram is recommended if the patients lifetime risk is 20% or greater. This exam was interpreted at Station ID: [id number]. NOTE: For mammograms, a report in lay terms will be sent to the patient. Approximately 15% of breast malignancies will not be visualized mammographically. In the management of a palpable breast mass, a negative mammogram must not discourage biopsy of a clinically suspicious lesion. Electronically Signed By: Ramon Hunter M.D. slc/:11/06/2021 14:00:56 ACR BI-RADS Category 3: Probably benign 3343F PARENCHYMAL PATTERN: (F) - The breast(s) demonstrate(s) diffuse fatty replacement. BI-RADS CATEGORY: (3) - 3 Mammogram [id number] 6 month follow-up LATERALITY: (B)
== END 2021-11-06 12:28 | disposition home or self-care (01) ==
LOC: DI 12:27
PROVIDERS: ATTEND Nurse Practitioner Family
DX: R92.1 Mammographic calcification found on diagnostic imaging of breast (principal)

== ENCOUNTER 2022-01-22 07:41 | Outpatient (CLI) | payer MEDICARE, OTHER ==
[2022-01-22 13:24] LABS: ALBUMIN 3.5 g/dL (3.2-5.5); ALBUMIN/GLOBULIN RATIO 1.3 (1.0-2.2); ALKALINE PHOSPHATASE 72 IU/L (42-121); ALT ALANINE AMINOTRANSFERASE 15 IU/L (10-60); AST ASPARTATE AMINOTRANSFERASE 20 IU/L (10-42); BILIRUBIN,TOTAL 0.7 mg/dL (0.2-1.0); BUN - BLOOD UREA NITROGEN 43 mg/dL (6-20); CALCIUM 9.1 mg/dL (8.5-10.3); CARBON DIOXIDE - CO2 23 mmol/L (21-32); CHLORIDE 106 mmol/L (101-111); CHOL/HDL RATIO 1.9 (<4.4); CHOLESTEROL 103 mg/dL; CREATININE 1.7 mg/dL (0.4-1.0); GFR - MDRD 29 (>89); GLUCOSE 127 mg/dL (70-100); HDL CHOLESTEROL 55 mg/dL; LDL CHOLESTEROL,CALCULATED 38 mg/dL; LDL/HDL RATIO 0.7 (<4.4); POTASSIUM 4.4 mmol/L (3.5-5.0); SODIUM 138 mmol/L (135-145); TOTAL PROTEIN 6.1 g/dL (6.7-8.2); TRIGLYCERIDES 52 mg/dL; VLDL CHOLESTEROL 10 mg/dL
[2022-01-22 14:02] LABS: ESTIMATED AVERAGE GLUCOSE 131 mg/dL (70-100); HEMOGLOBIN A1c% 6.2 % (4.27-6.07)
== END 2022-01-22 07:42 | disposition home or self-care (01) ==
LOC: LAB.N 07:41
PROVIDERS: ATTEND Physician Assistant Medical
DX: E11.59 Type 2 diabetes mellitus with other circulatory complications (principal)
CPT/HCPCS: 36415; 80053; 80061; 83036; 83721

== ENCOUNTER 2022-05-22 07:07 | Outpatient (CLI) | payer MEDICARE, OTHER ==
[2022-05-22 13:14] LABS: BASOPHILS % (AUTO) 0.5 %; EOSINOPHILS % (AUTO) 0.5 %; HCT - HEMATOCRIT 32.4 % (37.0-47.0); HGB - HEMOGLOBIN 9.5 g/dL (12.0-16.0); LYMPHOCYTES # (AUTO) 0.8 10^3/uL (1.5-3.5); LYMPHOCYTES % (AUTO) 18.8 %; MEAN CORPUSCULAR HEMOGLOBIN 24.7 pg (27.0-31.0); MEAN CORPUSCULAR HGB CONC 29.3 g/dL (32.0-36.0); MEAN CORPUSCULAR VOLUME 84.2 fL (81.0-99.0); MEAN PLATELET VOLUME 10.8 fL (7.9-10.8); MONOCYTES # (AUTO) 0.6 10^3/uL (0.0-1.0); MONOCYTES % (AUTO) 13.1 %; NEUTROPHILS # (AUTO) 2.8 10^3/uL (1.5-6.6); NEUTROPHILS % (AUTO) 66.6 %; PLT - PLATELET COUNT 274 10^3/uL (130-450); RED BLOOD COUNT 3.85 10^6/uL (4.20-5.40); RED CELL DISTRIBUTION WIDTH 20.8 % (12.0-15.0); WHITE BLOOD COUNT 4.3 x10^3/uL (4.8-10.8)
[2022-05-22 13:15] LABS: CALCIUM 8.7 mg/dL (8.5-10.3); CREATININE 1.6 mg/dL (0.4-1.0)
[2022-05-22 13:49] LABS: FERRITIN 23.6 ng/mL (11.0-306.8)
== END 2022-05-22 07:08 | disposition home or self-care (01) ==
LOC: LAB.N 07:07
PROVIDERS: ATTEND Physician Assistant Medical
DX: I50.9 Heart failure, unspecified (principal); D64.9 Anemia, unspecified
CPT/HCPCS: 36415; 80048; 82607; 82728; 85025

== ENCOUNTER 2022-06-08 09:15 | Outpatient (CLI) | payer MEDICARE, OTHER ==
[2022-06-08 09:57] LABS: ALBUMIN 3.3 g/dL (3.2-5.5); ALKALINE PHOSPHATASE 76 IU/L (42-121); ALT ALANINE AMINOTRANSFERASE 25 IU/L (10-60); AST ASPARTATE AMINOTRANSFERASE 34 IU/L (10-42); BILIRUBIN,TOTAL 0.9 mg/dL (0.2-1.0); BUN - BLOOD UREA NITROGEN 38 mg/dL (6-20); CARBON DIOXIDE - CO2 24 mmol/L (21-32); CHLORIDE 105 mmol/L (101-111); CHOLESTEROL 101 mg/dL; CREATININE 1.6 mg/dL (0.4-1.0); GFR - MDRD 31 (>89); GLUCOSE 102 mg/dL (70-100); HDL CHOLESTEROL 50 mg/dL; LDL CHOLESTEROL,CALCULATED 41 mg/dL; LDL/HDL RATIO 0.8 (<4.4); MAGNESIUM 1.9 mg/dL (1.7-2.8); SODIUM 140 mmol/L (135-145); TOTAL PROTEIN 6.6 g/dL (6.7-8.2); TRIGLYCERIDES 50 mg/dL; VLDL CHOLESTEROL 10 mg/dL
[2022-06-08 12:31] LABS: ESTIMATED AVERAGE GLUCOSE 160 mg/dL (70-100); HEMOGLOBIN A1c% 7.2 % (4.27-6.07)
[2022-06-12 06:12] LABS: HDL-P (TOTAL) 21.1 umol/L (>=30.5); LDL SIZE 21.1 nm (>20.5); LDL-P 444 nmol/L (<1000); LP-INSULIN RESISTANCE SCORE <25 (<=45); SMALL LDL-P <90 nmol/L (<=527)
== END 2022-06-08 09:16 | disposition home or self-care (01) ==
LOC: LAB 09:15
PROVIDERS: ATTEND Specialist
DX: E78.2 Mixed hyperlipidemia (principal); I48.0 Paroxysmal atrial fibrillation; E11.59 Type 2 diabetes mellitus with other circulatory complications
CPT/HCPCS: 36415; 80048; 80053; 80061; 83036; 83704; 83721; 83735

== ENCOUNTER 2022-06-23 08:09 | Outpatient (CLI) | payer MEDICARE, OTHER ==
[2022-06-23 08:29] LABS: EOSINOPHILS % (AUTO) 0.5 %; HCT - HEMATOCRIT 30.4 % (37.0-47.0); HGB - HEMOGLOBIN 9.1 g/dL (12.0-16.0); LYMPHOCYTES # (AUTO) 0.6 10^3/uL (1.5-3.5); LYMPHOCYTES % (AUTO) 15.8 %; MEAN CORPUSCULAR HEMOGLOBIN 25.4 pg (27.0-31.0); MEAN CORPUSCULAR HGB CONC 29.9 g/dL (32.0-36.0); MEAN CORPUSCULAR VOLUME 84.9 fL (81.0-99.0); MEAN PLATELET VOLUME 10.6 fL (7.9-10.8); MONOCYTES # (AUTO) 0.3 10^3/uL (0.0-1.0); NEUTROPHILS % (AUTO) 76.4 %; PLT - PLATELET COUNT 176 10^3/uL (130-450); RED BLOOD COUNT 3.58 10^6/uL (4.20-5.40); RED CELL DISTRIBUTION WIDTH 25.5 % (12.0-15.0)
[2022-06-23 08:40] LABS: CALCIUM 8.7 mg/dL (8.5-10.3); CREATININE 1.8 mg/dL (0.4-1.0); MAGNESIUM 1.8 mg/dL (1.7-2.8); POTASSIUM 3.7 mmol/L (3.5-5.0)
[2022-06-23 09:01] LABS: THYROID STIMULATING HORMONE 5.75 uIU/mL (0.34-5.60)
[2022-06-23 09:21] LABS: PLATELET ESTIMATE, MANUAL NORMAL (130-450,000) (NORMAL); PLATELET MORPHOLOGY NORMAL APPEARANCE (NORMAL); SLIDE REVIEW? Indicated
[2022-06-23 09:22] LABS: WBC MORPHOLOGY (MULTIPLE) NORMAL APPEARANCE (NORMAL)
[2022-06-23 11:12] LABS: FREE T4 (FREE THYROXINE) 1.24 ng/dL (0.58-1.64)
== END 2022-06-23 08:10 | disposition home or self-care (01) ==
LOC: LAB 08:09
PROVIDERS: ATTEND Specialist
DX: I10 Essential (primary) hypertension (principal); I48.0 Paroxysmal atrial fibrillation; D50.8 Other iron deficiency anemias; E03.9 Hypothyroidism, unspecified
CPT/HCPCS: 36415; 80048; 83735; 84439; 84443; 85025

== ENCOUNTER 2022-07-18 09:53 | Outpatient (CLI) | payer MEDICARE, OTHER ==
[2022-07-18 10:20] LABS: BASOPHILS % (AUTO) 0.8 %; EOSINOPHILS # (AUTO) 0.1 10^3/uL (0.0-0.7); EOSINOPHILS % (AUTO) 1.3 %; HCT - HEMATOCRIT 28.9 % (37.0-47.0); HGB - HEMOGLOBIN 8.6 g/dL (12.0-16.0); LYMPHOCYTES # (AUTO) 0.5 10^3/uL (1.5-3.5); LYMPHOCYTES % (AUTO) 12.9 %; MEAN CORPUSCULAR HEMOGLOBIN 27.6 pg (27.0-31.0); MEAN CORPUSCULAR HGB CONC 29.8 g/dL (32.0-36.0); MEAN CORPUSCULAR VOLUME 92.6 fL (81.0-99.0); MEAN PLATELET VOLUME 10.5 fL (7.9-10.8); MONOCYTES # (AUTO) 0.3 10^3/uL (0.0-1.0); PLT - PLATELET COUNT 164 10^3/uL (130-450); RED BLOOD COUNT 3.12 10^6/uL (4.20-5.40); RED CELL DISTRIBUTION WIDTH 24.6 % (12.0-15.0); WHITE BLOOD COUNT 3.9 x10^3/uL (4.8-10.8)
[2022-07-18 10:31] LABS: CREATININE 1.5 mg/dL (0.4-1.0)
== END 2022-07-18 09:54 | disposition home or self-care (01) ==
LOC: LAB 09:53
PROVIDERS: ATTEND Internal Medicine Nephrology
DX: D70.9 Neutropenia, unspecified (principal); D63.1 Anemia in chronic kidney disease; N05.9 Unspecified nephritic syndrome with unspecified morphologic changes
CPT/HCPCS: 36415; 82565; 85025

== ENCOUNTER 2022-08-22 09:41 | Outpatient (CLI) | payer MEDICARE, OTHER ==
--- NOTE | 2022-08-23 10:54 | Mammography Report ---
BILATERAL DIGITAL DIAGNOSTIC MAMMOGRAM 3D/2D WITH MAGNIFICATION: 08/22/2022 CLINICAL: Patient returns for 6 month follow up on right breast calcifications. Due for bilateral soco ging. Comparison is made to exams dated: 11/06/2021 mammogram, 03/21/2021 mammogram, 02/08/2021 mammogram, mammogram, [facility] and [facility] - [facility]. Both breasts are almost entirely fatty (category a/<25% glandular tissue). There are stable 0.4 cm grouped dystrophic heterogeneous calcifications in the right breast at 9 o'cl ock posterior depth. Benign calcifications in both breasts. No other significant masses, calcifications, or other findings are seen in either breast. IMPRESSION: PROBABLY BENIGN The 0.4 cm grouped dystrophic heterogeneous calcifications in the right breast are probably benign. A follow-up mammogram in 12 months is recommended to demonstrate long-term stability. Exam findings were conveyed to the patient. This exam was interpreted at Station ID: [id number]. NOTE: For mammograms, a report in lay terms will be sent to the patient. Approximately 15% of breast malignancies will not be visualized mammographically. In the management of a palpable breast mass, a negative mammogram must not discourage biopsy of a clinically suspicious lesion. Electronically Signed By: Ramon Hunter M.D. slc/:08/22/2022 10:48:44 ACR BI-RADS Category 3: Probably benign 3343F PARENCHYMAL PATTERN: (F) - The breast(s) demonstrate(s) diffuse fatty replacement. BI-RADS CATEGORY: (3) - 3 Mammogram [id number] 12 month follow-up LATERALITY: (B)
== END 2022-08-22 09:42 | disposition home or self-care (01) ==
LOC: DI 09:41
PROVIDERS: ATTEND Physician Assistant Medical
DX: R92.1 Mammographic calcification found on diagnostic imaging of breast (principal)

== ENCOUNTER 2022-09-09 07:31 | Outpatient (CLI) | payer MEDICARE, OTHER ==
[2022-09-09 12:55] LABS: BASOPHILS % (AUTO) 0.7 %; EOSINOPHILS # (AUTO) 0.1 10^3/uL (0.0-0.7); EOSINOPHILS % (AUTO) 3.1 %; HCT - HEMATOCRIT 31.7 % (37.0-47.0); LYMPHOCYTES # (AUTO) 0.9 10^3/uL (1.5-3.5); LYMPHOCYTES % (AUTO) 19.8 %; MEAN CORPUSCULAR HEMOGLOBIN 30.9 pg (27.0-31.0); MEAN CORPUSCULAR HGB CONC 31.5 g/dL (32.0-36.0); MEAN CORPUSCULAR VOLUME 97.8 fL (81.0-99.0); MEAN PLATELET VOLUME 12.4 fL (7.9-10.8); MONOCYTES # (AUTO) 0.5 10^3/uL (0.0-1.0); NEUTROPHILS # (AUTO) 2.9 10^3/uL (1.5-6.6); NEUTROPHILS % (AUTO) 65.2 %; PLT - PLATELET COUNT 196 10^3/uL (130-450); RED BLOOD COUNT 3.24 10^6/uL (4.20-5.40); RED CELL DISTRIBUTION WIDTH 16.1 % (12.0-15.0); WHITE BLOOD COUNT 4.5 x10^3/uL (4.8-10.8)
[2022-09-09 13:20] LABS: ALBUMIN 3.4 g/dL (3.2-5.5); ALBUMIN/GLOBULIN RATIO 1.2 (1.0-2.2); BILIRUBIN,TOTAL 0.7 mg/dL (0.2-1.0); CALCIUM 8.9 mg/dL (8.5-10.3); CREATININE 1.5 mg/dL (0.4-1.0); MAGNESIUM 1.8 mg/dL (1.7-2.8); POTASSIUM 3.6 mmol/L (3.5-5.0); TOTAL PROTEIN 6.2 g/dL (6.7-8.2)
== END 2022-09-09 07:32 | disposition home or self-care (01) ==
LOC: LAB.N 07:31
PROVIDERS: ATTEND Specialist
DX: I48.0 Paroxysmal atrial fibrillation (principal); D50.8 Other iron deficiency anemias
CPT/HCPCS: 36415; 80053; 83735; 85025

== ENCOUNTER 2022-09-28 08:26 | Outpatient (CLI) | payer MEDICARE, OTHER ==
[2022-09-28 09:22] LABS: BASOPHILS % (AUTO) 0.6 %; EOSINOPHILS # (AUTO) 0.2 10^3/uL (0.0-0.7); EOSINOPHILS % (AUTO) 3.6 %; HCT - HEMATOCRIT 31.9 % (37.0-47.0); HGB - HEMOGLOBIN 10.2 g/dL (12.0-16.0); LYMPHOCYTES # (AUTO) 0.7 10^3/uL (1.5-3.5); LYMPHOCYTES % (AUTO) 14.3 %; MEAN CORPUSCULAR HEMOGLOBIN 31.1 pg (27.0-31.0); MEAN CORPUSCULAR VOLUME 97.3 fL (81.0-99.0); MEAN PLATELET VOLUME 11.6 fL (7.9-10.8); MONOCYTES # (AUTO) 0.5 10^3/uL (0.0-1.0); NEUTROPHILS # (AUTO) 3.4 10^3/uL (1.5-6.6); NEUTROPHILS % (AUTO) 71.3 %; PLT - PLATELET COUNT 190 10^3/uL (130-450); RED BLOOD COUNT 3.28 10^6/uL (4.20-5.40); RED CELL DISTRIBUTION WIDTH 15.6 % (12.0-15.0); WHITE BLOOD COUNT 4.7 x10^3/uL (4.8-10.8)
[2022-09-28 09:46] LABS: THYROID STIMULATING HORMONE 0.3 uIU/mL (0.34-5.60)
[2022-09-28 09:50] LABS: CREATININE,URINE 55.7 mg/dL; PROTEIN/CREATININE RATIO,URINE 0.3 (<=0.2)
[2022-09-28 09:53] LABS: FERRITIN 87.9 ng/mL (11.0-306.8)
[2022-09-28 09:57] LABS: FOLATE 11.02 ng/mL (5.90 - >24.8)
[2022-09-28 10:02] LABS: ALBUMIN 3.4 g/dL (3.2-5.5); ALBUMIN/GLOBULIN RATIO 1.1 (1.0-2.2); ALKALINE PHOSPHATASE 82 IU/L (42-121); ALT ALANINE AMINOTRANSFERASE 29 IU/L (10-60); AST ASPARTATE AMINOTRANSFERASE 26 IU/L (10-42); BUN - BLOOD UREA NITROGEN 52 mg/dL (6-20); CARBON DIOXIDE - CO2 26 mmol/L (21-32); CHLORIDE 110 mmol/L (101-111); CHOL/HDL RATIO 2.1 (<4.4); CHOLESTEROL 112 mg/dL; CREATININE 1.4 mg/dL (0.4-1.0); GFR - MDRD 36 (>89); GLUCOSE 107 mg/dL (70-100); HDL CHOLESTEROL 54 mg/dL; IRON 58 ug/dL (28-170); LDL CHOLESTEROL,CALCULATED 48 mg/dL; LDL/HDL RATIO 0.9 (<4.4); MAGNESIUM 2.3 mg/dL (1.7-2.8); PHOSPHORUS 4.2 mg/dL (2.5-4.6); POTASSIUM 3.8 mmol/L (3.5-5.0); SODIUM 144 mmol/L (135-145); TOTAL PROTEIN 6.5 g/dL (6.7-8.2); TRIGLYCERIDES 48 mg/dL; VLDL CHOLESTEROL 10 mg/dL
[2022-09-28 10:16] LABS: FREE T4 (FREE THYROXINE) 1.42 ng/dL (0.58-1.64)
[2022-09-28 12:01] LABS: ESTIMATED AVERAGE GLUCOSE 160 mg/dL (70-100); HEMOGLOBIN A1c% 7.2 % (4.27-6.07)
== END 2022-09-28 08:27 | disposition home or self-care (01) ==
LOC: LAB 08:26
PROVIDERS: ATTEND Specialist
DX: E11.22 Type 2 diabetes mellitus with diabetic chronic kidney disease (principal); N18.32 Chronic kidney disease, stage 3b; D63.1 Anemia in chronic kidney disease; E78.2 Mixed hyperlipidemia; D50.0 Iron deficiency anemia secondary to blood loss (chronic); D50.8 Other iron deficiency anemias; N05.9 Unspecified nephritic syndrome with unspecified morphologic changes; D70.9 Neutropenia, unspecified; R80.9 Proteinuria, unspecified; E83.30 Disorder of phosphorus metabolism, unspecified; N25.81 Secondary hyperparathyroidism of renal origin; I50.32 Chronic diastolic (congestive) heart failure; E11.59 Type 2 diabetes mellitus with other circulatory complications; E03.9 Hypothyroidism, unspecified
CPT/HCPCS: 36415; 80048; 80053; 80061; 82570; 82607; 82728; 82746; 83036; 83540; 83721; 83735; 83880; 83970; 84100; 84156; 84439; 84443; 85025

== ENCOUNTER 2022-10-09 06:23 | Day surgery (SDC) | payer MEDICARE, OTHER ==
[2022-10-09] MEDS ORDERED: LACTATED RINGERS 1,000 ML IV ONE ×2 (06:37→09:41)
--- NOTE | 2022-10-09 08:01 | ANESTHESIA ---
Pre-Anesthesia VS, & Labs - Diagnosis screening, anemia - Procedure EGD, colonoscopy Vital Signs: Temp Pulse Resp BP Pulse Ox O2 Flow Rate 36.6 C 64 16 156/75 H 99 0 10/09/22 06:49 10/09/22 06:49 10/09/22 06:49 10/09/22 06:49 10/09/22 06:49 10/09/22 06:49 Height: 5 ft 5 in Weight (kg): 68.7 kg Body Mass Index: 25.2 BMI Classification: Overweight - NPO >8 hours Last Fluid Intake: am prep - Is Patient ?: No - Lab Results Current Lab Results: Laboratory Tests 10/09/22 06:50: POC Whole Bld Glucose 161 H Lab results reviewed: Yes Home Medications and Allergies Atorvastatin [Lipitor] 80 mg PO DAILY 08/27/15 Insulin Glargine,Hum.rec.anlog [Lantus Solostar] 6 unit SQ DAILY 08/27/15 Insulin Glulisine [Apidra Solostar] 6 unit SQ TIDWM 08/27/15 Levothyroxine [Synthroid] 150 mcg PO QDAC 08/27/15 Losartan Potassium 50 mg PO BID 08/27/15 Nitroglycerin [Nitrostat] 0.4 mg SL Q5M PRN 08/27/15 Amlodipine Besylate 10 mg PO DAILY 12/12/18 Isosorbide Dinitrate 120 mg PO DAILY 12/12/18 Apixaban [Eliquis] 2.5 mg PO BID 02/25/19 Furosemide [Lasix] 40 mg PO DAILY 09/05/21 Hydralazine HCl 100 mg PO TID 09/05/21 Ranolazine [Ranexa] 500 mg PO DAILY 09/05/21 Allergies/Adverse Reactions: Allergies Allergy/AdvReac Type Severity Reaction Status Date / Time PHANI Inhibitors Allergy Unknown Verified 10/09/22 06:28 azithromycin [From Zithromax] Allergy Unknown Verified 10/09/22 06:28 Egg Derived Allergy Unknown Verified 10/09/22 06:28 nitrofurantoin Allergy Nausea Verified 10/09/22 06:28 Anes History & Medical History - Anesthetic History Anesthesia Complications: reports: No previous complications Family history of Anesthesia Complications: Denies Family history of Malignant Hyperthermia: Denies - Medical History Cardiovascular: reports: Hypertension, High cholesterol, Coronary artery disease, Arrhythmia Pulmonary: reports: None Gastrointestinal: reports: None Urinary: reports: None Neuro: reports: None Musculoskeletal: reports: None Endocrine/Autoimmune: reports: Type 2 diabetes, HyPOthyroidism Blood Disorders: reports: None Skin: reports: None Smoking Status: Never smoker - Surgical History General: reports: Cholecystectomy, Colonoscopy Cardiothoracic: reports: CABG Gynecologic: reports: Hysterectomy Exam General: Alert, Oriented x3, Cooperative Dental: WNL Mouth Openin Fingerbreadth Neck Mobility: Normal Mallampati classification: II Thyromental Distance: 4-6 cm Respiratory: Lungs clear, Normal breath sounds, No respiratory distress Cardiovascular: Other (irreg) Mental/Cognitive Status: Alert/Oriented X3, Normal for patient Cognitive Status: Within normal limits Plan Anesthesia Type: Total IV Consent for Procedure(s) Verified and Reviewed: Yes Code Status: Attempt Resuscitation ASA classification: 3-Severe systemic disease Is this case an emergency?: No
[2022-10-09] MEDS ORDERED: LIDOCAINE-MPF 2% 5 ML VIAL ONE (08:31)
[2022-10-09] MEDS ORDERED: PROPOFOL 500 MG/50 ML 500 MG/50 ML VIAL ONE (08:31)
[2022-10-09] MEDS ORDERED: GLYCOPYRROLATE 1 MG/5 ML VIAL ONE (09:15)
[2022-10-09 10:04] VITALS: BP 132/52
--- NOTE | 2022-10-09 11:59 | ANESTHESIA POST OP EVALUATION ---
Anesthesia Post Eval - Post Anesthesia Eval Vitals: Last Vital Signs Temp 36.6 C 10/09/22 09:42 Pulse 55 L 10/09/22 10:01 Resp 20 10/09/22 10:01 BP 132/52 H 10/09/22 10:01 Pulse Ox 100 10/09/22 10:01 O2 Flow Rate 0 10/09/22 06:49 CV Function Including HR & BP: Stable Pain Control: Satisfactory Nausea & Vomiting: Negative Mental Status: Baseline Respiratory Status: Airway Patent Hydration Status: Satisfactory Anesthesia Complications: None
== END 2022-10-09 06:24 | disposition home or self-care (01) ==
LOC: SDS 06:23
PROVIDERS: ATTEND Surgery
PROC: 0DBK8ZZ Excision of Ascending Colon, Via Natural or Artificial Opening Endoscopic (ICD-10-PCS; principal; 2022-10-09 07:30)
PROC: 0DJ08ZZ Inspection of Upper Intestinal Tract, Via Natural or Artificial Opening Endoscopic (ICD-10-PCS; 2022-10-09 07:30)
DX: D50.0 Iron deficiency anemia secondary to blood loss (chronic) (principal); K44.9 Diaphragmatic hernia without obstruction or gangrene; K29.50 Unspecified chronic gastritis without bleeding; K22.89 Other specified disease of esophagus; D12.2 Benign neoplasm of ascending colon; K57.31 Diverticulosis of large intestine without perforation or abscess with bleeding; K64.2 Third degree hemorrhoids; Z79.4 Long term (current) use of insulin; I48.0 Paroxysmal atrial fibrillation; Z79.01 Long term (current) use of anticoagulants; Z66 Do not resuscitate; E11.42 Type 2 diabetes mellitus with diabetic polyneuropathy; I50.9 Heart failure, unspecified; Z95.1 Presence of aortocoronary bypass graft
CPT/HCPCS: 43235; 45380; J7120

== ENCOUNTER 2022-10-14 11:38 | Outpatient (CLI) | payer MEDICARE, OTHER ==
[2022-10-14 17:55] LABS: BASOPHILS % (AUTO) 0.5 %; EOSINOPHILS # (AUTO) 0.1 10^3/uL (0.0-0.7); EOSINOPHILS % (AUTO) 1.6 %; HGB - HEMOGLOBIN 9.9 g/dL (12.0-16.0); LYMPHOCYTES # (AUTO) 0.7 10^3/uL (1.5-3.5); LYMPHOCYTES % (AUTO) 12.8 %; MEAN CORPUSCULAR HEMOGLOBIN 31.4 pg (27.0-31.0); MEAN CORPUSCULAR HGB CONC 31.9 g/dL (32.0-36.0); MEAN CORPUSCULAR VOLUME 98.4 fL (81.0-99.0); MEAN PLATELET VOLUME 11.9 fL (7.9-10.8); MONOCYTES # (AUTO) 0.5 10^3/uL (0.0-1.0); MONOCYTES % (AUTO) 9.3 %; NEUTROPHILS # (AUTO) 4.1 10^3/uL (1.5-6.6); NEUTROPHILS % (AUTO) 75.6 %; PLT - PLATELET COUNT 188 10^3/uL (130-450); RED BLOOD COUNT 3.15 10^6/uL (4.20-5.40); RED CELL DISTRIBUTION WIDTH 15.6 % (12.0-15.0); WHITE BLOOD COUNT 5.5 x10^3/uL (4.8-10.8)
[2022-10-14 18:00] LABS: CREATININE 1.7 mg/dL (0.4-1.0)
== END 2022-10-14 11:39 | disposition home or self-care (01) ==
LOC: LAB.N 11:38
PROVIDERS: ATTEND Internal Medicine Nephrology
DX: D70.9 Neutropenia, unspecified (principal); D63.1 Anemia in chronic kidney disease; N05.9 Unspecified nephritic syndrome with unspecified morphologic changes
CPT/HCPCS: 36415; 82565; 85025

== ENCOUNTER 2022-12-23 08:07 | Outpatient (CLI) | payer MEDICARE, OTHER ==
[2022-12-23 11:49] LABS: BASOPHILS % (AUTO) 0.7 %; EOSINOPHILS # (AUTO) 0.1 10^3/uL (0.0-0.7); EOSINOPHILS % (AUTO) 2.7 %; HCT - HEMATOCRIT 34.6 % (37.0-47.0); LYMPHOCYTES # (AUTO) 0.8 10^3/uL (1.5-3.5); LYMPHOCYTES % (AUTO) 19.3 %; MEAN CORPUSCULAR HEMOGLOBIN 31.6 pg (27.0-31.0); MEAN CORPUSCULAR HGB CONC 31.8 g/dL (32.0-36.0); MEAN CORPUSCULAR VOLUME 99.4 fL (81.0-99.0); MEAN PLATELET VOLUME 11.8 fL (7.9-10.8); MONOCYTES # (AUTO) 0.4 10^3/uL (0.0-1.0); MONOCYTES % (AUTO) 9.8 %; NEUTROPHILS # (AUTO) 2.8 10^3/uL (1.5-6.6); NEUTROPHILS % (AUTO) 67.3 %; PLT - PLATELET COUNT 160 10^3/uL (130-450); RED BLOOD COUNT 3.48 10^6/uL (4.20-5.40); RED CELL DISTRIBUTION WIDTH 14.1 % (12.0-15.0); WHITE BLOOD COUNT 4.1 x10^3/uL (4.8-10.8)
[2022-12-23 12:05] LABS: ALBUMIN 3.7 g/dL (3.2-5.5); ALBUMIN/GLOBULIN RATIO 1.4 (1.0-2.2); BILIRUBIN,TOTAL 0.7 mg/dL (0.2-1.0); CALCIUM 9.6 mg/dL (8.5-10.3); CREATININE 1.5 mg/dL (0.6-1.3); POTASSIUM 4.5 mmol/L (3.5-4.5); TOTAL PROTEIN 6.4 g/dL (6.4-8.9)
[2022-12-23 12:06] LABS: CHOL/HDL RATIO 1.9 (<4.4); CHOLESTEROL 100 mg/dL; HDL CHOLESTEROL 54 mg/dL; LDL CHOLESTEROL,CALCULATED 32 mg/dL; LDL/HDL RATIO 0.6 (<4.4); MAGNESIUM 1.9 mg/dL (1.7-2.3); TRIGLYCERIDES 70 mg/dL (48-352); VLDL CHOLESTEROL 14 mg/dL
[2022-12-23 12:06] LABS: ESTIMATED AVERAGE GLUCOSE 148 mg/dL (70-100); HEMOGLOBIN A1c% 6.8 % (4.27-6.07)
[2022-12-23 12:18] LABS: THYROID STIMULATING HORMONE 0.74 uIU/mL (0.34-5.60)
[2022-12-23 12:22] LABS: FERRITIN 57.6 ng/mL (11.0-306.8)
== END 2022-12-23 08:08 | disposition home or self-care (01) ==
LOC: LAB.N 08:07
PROVIDERS: ATTEND Specialist
DX: E78.2 Mixed hyperlipidemia (principal); E11.59 Type 2 diabetes mellitus with other circulatory complications; D50.8 Other iron deficiency anemias; I48.0 Paroxysmal atrial fibrillation; E03.9 Hypothyroidism, unspecified
CPT/HCPCS: 36415; 80053; 80061; 82728; 83036; 83721; 83735; 84443; 85025

== ENCOUNTER 2023-03-22 09:56 | Outpatient (CLI) | payer MEDICARE, OTHER ==
[2023-03-22 10:13] LABS: BASOPHILS % (AUTO) 0.7 %; EOSINOPHILS # (AUTO) 0.1 10^3/uL (0.0-0.7); EOSINOPHILS % (AUTO) 2.6 %; HCT - HEMATOCRIT 36.4 % (37.0-47.0); HGB - HEMOGLOBIN 11.5 g/dL (12.0-16.0); LYMPHOCYTES # (AUTO) 0.9 10^3/uL (1.5-3.5); LYMPHOCYTES % (AUTO) 20.8 %; MEAN CORPUSCULAR HEMOGLOBIN 31.3 pg (27.0-31.0); MEAN CORPUSCULAR HGB CONC 31.6 g/dL (32.0-36.0); MEAN CORPUSCULAR VOLUME 98.9 fL (81.0-99.0); MEAN PLATELET VOLUME 10.6 fL (7.9-10.8); MONOCYTES # (AUTO) 0.4 10^3/uL (0.0-1.0); NEUTROPHILS # (AUTO) 2.8 10^3/uL (1.5-6.6); NEUTROPHILS % (AUTO) 65.7 %; PLT - PLATELET COUNT 176 10^3/uL (130-450); RED BLOOD COUNT 3.68 10^6/uL (4.20-5.40); RED CELL DISTRIBUTION WIDTH 13.6 % (12.0-15.0); WHITE BLOOD COUNT 4.3 x10^3/uL (4.8-10.8)
[2023-03-22 10:26] LABS: CALCIUM 9.6 mg/dL (8.5-10.3); CREATININE 1.6 mg/dL (0.6-1.3); POTASSIUM 4.6 mmol/L (3.5-4.5)
[2023-03-22 11:10] LABS: ESTIMATED AVERAGE GLUCOSE 151 mg/dL (70-100); HEMOGLOBIN A1c% 6.9 % (4.27-6.07)
== END 2023-03-22 09:57 | disposition home or self-care (01) ==
LOC: LAB 09:56
PROVIDERS: ATTEND Physician Assistant Medical
DX: D64.9 Anemia, unspecified (principal); E11.59 Type 2 diabetes mellitus with other circulatory complications
CPT/HCPCS: 36415; 80048; 83036; 85025

== ENCOUNTER 2023-04-05 13:33 | Outpatient (CLI) | payer MEDICARE, OTHER ==
[2023-04-05 14:35] LABS: CREATININE,URINE 42.3 mg/dL; PROTEIN/CREATININE RATIO,URINE 0.4 (<=0.2)
[2023-04-05 14:40] LABS: FERRITIN 72.2 ng/mL (11.0-306.8)
[2023-04-05 16:02] LABS: CALCIUM 9.5 mg/dL (8.5-10.3); CREATININE 1.7 mg/dL (0.6-1.3); PHOSPHORUS 3.4 mg/dL (2.5-5.0)
== END 2023-04-05 13:34 | disposition home or self-care (01) ==
LOC: LAB 13:33
PROVIDERS: ATTEND Internal Medicine Nephrology
DX: N05.9 Unspecified nephritic syndrome with unspecified morphologic changes (principal); I50.32 Chronic diastolic (congestive) heart failure; N25.81 Secondary hyperparathyroidism of renal origin; R80.9 Proteinuria, unspecified; D70.9 Neutropenia, unspecified; D50.0 Iron deficiency anemia secondary to blood loss (chronic); E83.30 Disorder of phosphorus metabolism, unspecified; D51.9 Vitamin B12 deficiency anemia, unspecified
CPT/HCPCS: 36415; 80048; 82570; 82607; 82728; 82746; 83540; 83880; 83970; 84100; 84156; 84466

== ENCOUNTER 2023-04-12 10:13 | Outpatient (CLI) | payer MEDICARE, OTHER ==
[2023-04-12 18:40] LABS: HGB - HEMOGLOBIN 12.2 g/dL (12.0-16.0); MEAN CORPUSCULAR HEMOGLOBIN 31.8 pg (27.0-31.0); MEAN CORPUSCULAR HGB CONC 31.3 g/dL (32.0-36.0); MEAN CORPUSCULAR VOLUME 101.6 fL (81.0-99.0); MEAN PLATELET VOLUME 12.3 fL (7.9-10.8); RED BLOOD COUNT 3.84 10^6/uL (4.20-5.40); RED CELL DISTRIBUTION WIDTH 13.8 % (12.0-15.0); WHITE BLOOD COUNT 5.2 x10^3/uL (4.8-10.8)
== END 2023-04-12 10:14 | disposition home or self-care (01) ==
LOC: LAB.N 10:13
PROVIDERS: ATTEND Internal Medicine Nephrology
DX: D70.9 Neutropenia, unspecified (principal); D63.1 Anemia in chronic kidney disease
CPT/HCPCS: 36415; 85027

== ENCOUNTER 2023-05-17 09:33 | Outpatient (CLI) | payer MEDICARE, OTHER ==
[2023-05-17 19:23] LABS: HCT - HEMATOCRIT 34.8 % (37.0-47.0); HGB - HEMOGLOBIN 11.2 g/dL (12.0-16.0); MEAN CORPUSCULAR HEMOGLOBIN 32.1 pg (27.0-31.0); MEAN CORPUSCULAR HGB CONC 32.2 g/dL (32.0-36.0); MEAN CORPUSCULAR VOLUME 99.7 fL (81.0-99.0); RED BLOOD COUNT 3.49 10^6/uL (4.20-5.40); RED CELL DISTRIBUTION WIDTH 13.7 % (12.0-15.0); WHITE BLOOD COUNT 4.5 x10^3/uL (4.8-10.8)
[2023-05-17 19:37] LABS: ALBUMIN 3.6 g/dL (3.2-5.5); ALBUMIN/GLOBULIN RATIO 1.4 (1.0-2.2); BILIRUBIN,TOTAL 0.8 mg/dL (0.2-1.0); CALCIUM 9.3 mg/dL (8.5-10.3); CREATININE 1.7 mg/dL (0.6-1.3); MAGNESIUM 1.8 mg/dL (1.7-2.3); POTASSIUM 4.4 mmol/L (3.5-4.5); TOTAL PROTEIN 6.2 g/dL (6.4-8.9)
[2023-05-17 20:22] LABS: THYROID STIMULATING HORMONE 0.28 uIU/mL (0.34-5.60)
[2023-05-20 08:10] LABS: HDL-P (TOTAL) 24.4 umol/L (>=30.5); LDL SIZE 20.9 nm (>20.5); LDL-P 447 nmol/L (<1000); LP-INSULIN RESISTANCE SCORE <25 (<=45); SMALL LDL-P <90 nmol/L (<=527)
== END 2023-05-17 09:34 | disposition home or self-care (01) ==
LOC: LAB.N 09:33
PROVIDERS: ATTEND Specialist
DX: E78.2 Mixed hyperlipidemia (principal); Z79.01 Long term (current) use of anticoagulants; N18.32 Chronic kidney disease, stage 3b; I48.19 Other persistent atrial fibrillation
CPT/HCPCS: 36415; 80053; 83704; 83735; 84443; 85027

== ENCOUNTER 2023-06-28 09:13 | Outpatient (CLI) | payer MEDICARE, OTHER ==
[2023-06-28 09:51] LABS: CALCIUM 9.7 mg/dL (8.5-10.3); CREATININE 1.9 mg/dL (0.6-1.3); POTASSIUM 4.2 mmol/L (3.5-4.5)
[2023-06-28 10:13] LABS: ESTIMATED AVERAGE GLUCOSE 151 mg/dL (70-100); HEMOGLOBIN A1c% 6.9 % (4.27-6.07)
== END 2023-06-28 09:14 | disposition home or self-care (01) ==
LOC: LAB 09:13
PROVIDERS: ATTEND Physician Assistant Medical
DX: E11.59 Type 2 diabetes mellitus with other circulatory complications (principal)
CPT/HCPCS: 36415; 80048; 83036

== ENCOUNTER 2023-09-22 08:41 | Outpatient (CLI) | payer MEDICARE, OTHER ==
[2023-09-22 09:15] LABS: ALBUMIN 3.8 g/dL (3.2-5.5); ALBUMIN/GLOBULIN RATIO 1.4 (1.0-2.2); BILIRUBIN,TOTAL 0.8 mg/dL (0.2-1.0); CALCIUM 9.8 mg/dL (8.5-10.3); CREATININE 1.9 mg/dL (0.6-1.3); POTASSIUM 4.9 mmol/L (3.5-4.5); TOTAL PROTEIN 6.6 g/dL (6.4-8.9)
[2023-09-22 09:28] LABS: THYROID STIMULATING HORMONE 1.06 uIU/mL (0.34-5.60)
[2023-09-22 11:24] LABS: ESTIMATED AVERAGE GLUCOSE 163 mg/dL (70-100); HEMOGLOBIN A1c% 7.3 % (4.27-6.07)
== END 2023-09-22 08:42 | disposition home or self-care (01) ==
LOC: LAB 08:41
PROVIDERS: ATTEND Physician Assistant Medical
DX: E11.59 Type 2 diabetes mellitus with other circulatory complications (principal); E03.9 Hypothyroidism, unspecified
CPT/HCPCS: 36415; 80053; 83036; 84443

== ENCOUNTER 2023-10-08 18:02 | Outpatient (CLI) | payer MEDICARE, OTHER ==
[2023-10-08 19:00] LABS: BILIRUBIN,URINE NEGATIVE (NEGATIVE); GLUCOSE, URINE (UA) NEGATIVE (NEGATIVE); KETONES,URINE (UA) NEGATIVE (NEGATIVE); LEUKOCYTE ESTERASE, URINE NEGATIVE (NEGATIVE); NITRITE,URINE NEGATIVE (NEGATIVE); OCCULT BLOOD,URINE NEGATIVE (NEGATIVE); PH,URINE 5.5 PH (5.0-7.5); PROTEIN,URINE NEGATIVE (NEGATIVE); UROBILINOGEN,URINE 0.2 (NORMAL) E.U./dL (NORMAL)
[2023-10-08 19:04] LABS: CLARITY,URINE CLEAR (CLEAR)
[2023-10-08 19:18] LABS: RBC,URINE 0-5 /HPF (0-5); SQUAMOUS EPITHELIAL CELL,UR MOD Squamous (<= Few); WBC,URINE 0-3 /HPF (0-5)
[2023-10-08 19:19] LABS: BACTERIA,URINE Rare /HPF (None Seen)
--- NOTE | 2023-10-09 12:26 | XRAY Report ---
PROCEDURE: Thoracic Spine 2V INDICATIONS: BACK PAIN,THORACIC REGION TECHNIQUE: 2 views of the thoracic spine were acquired. COMPARISON: None. FINDINGS: Bones: No fractures or dislocations. No suspicious bony lesions. 12 pairs of ribs are noted, and a ppear intact where visualized. Multilevel degenerative disc space narrowing throughout the thoracic spine as well as scattered areas of bridging anterior osteophyte. Soft tissues: No paravertebral stripe thickening. IMPRESSION: Multilevel degenerative disc space narrowing as well as anterior osteophytes. No visualized acute fracture or dislocation. However, occult injury cannot be excluded. Recommend lesvia rt interval imaging follow-up in 7-10 days as clinically indicated for additional evaluation. Reviewed by: Chelsey Miner MD on 10/09/2023 12:25 PM PDT Approved by: Chelsey Miner MD on 10/09/2023 12:25 PM PDT Station ID: [id number]
== END 2023-10-08 18:03 | disposition home or self-care (01) ==
LOC: DI 18:02
PROVIDERS: ATTEND Physician Assistant
DX: M47.814 Spondylosis without myelopathy or radiculopathy, thoracic region (principal)
CPT/HCPCS: 81001; 87086

== ENCOUNTER 2023-12-14 08:50 | Outpatient (CLI) | payer MEDICARE, OTHER ==
[2023-12-14 09:26] LABS: CALCIUM 9.3 mg/dL (8.5-10.3); CREATININE 1.7 mg/dL (0.6-1.3); POTASSIUM 4.4 mmol/L (3.5-4.5)
[2023-12-14 21:29] LABS: ESTIMATED AVERAGE GLUCOSE 148 mg/dL (70-100); HEMOGLOBIN A1c% 6.8 % (4.27-6.07)
== END 2023-12-14 08:51 | disposition home or self-care (01) ==
LOC: LAB 08:50
PROVIDERS: ATTEND Physician Assistant Medical
DX: E11.51 Type 2 diabetes mellitus with diabetic peripheral angiopathy without gangrene (principal)
CPT/HCPCS: 36415; 80048; 83036

== ENCOUNTER 2023-12-17 21:57 | Outpatient (CLI) | payer MEDICARE, OTHER ==
--- NOTE | 2023-12-18 00:11 | Ultrasound Report ---
PROCEDURE: Arterial Duplex Lwr Ext BL INDICATIONS: + REST PAIN FT FOOT, DM TECHNIQUE: Color and pulse Doppler interrogation was performed of both lower extremity arterial systems, with im age documentation. COMPARISON: None FINDINGS: Right lower extremity: Common femoral artery: 110 cm/sec, with monophasic flow. Deep femoral artery: 86 cm/sec, with monophasic flow. Proximal superficial femoral artery: 164 cm/sec, with monophasic flow. Mid superficial femoral artery: 98 cm/sec, with monophasic flow. Distal superficial femoral artery: 82 cm/sec, with monophasic flow. Popliteal artery: 123 cm/sec, with monophasic flow. Posterior tibial artery: 133 cm/sec, with monophasic flow. Anterior tibial artery/dorsalis pedis: 89/134 cm/sec, with monophasic flow. Lee-scale imaging description: Marked atherosclerotic plaque. Left lower extremity: Common femoral artery: 129 cm/sec, with monophasic flow. Deep femoral artery: 88 cm/sec, with monophasic flow. Proximal superficial femoral artery: 229 cm/sec, with monophasic flow. Mid superficial femoral artery: 110 cm/sec, with monophasic flow. Distal superficial femoral artery: 149 cm/sec, with monophasic flow. Popliteal artery: 106 cm/sec, with monophasic flow. Posterior tibial artery: 108 cm/sec, with monophasic flow. Anterior tibial artery/dorsalis pedis: 68/22 cm/sec, with monophasic flow. Lee-scale imaging description: Marked atherosclerotic plaque. IMPRESSION: Monophasic flow throughout the lower extremities, suggestive of iliac disease. 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 Significant atherosclerotic plaque throughout the lower extremities. Reviewed by: Esteban Clarke MD on 12/18/2023 12:10 AM PDT Approved by: Esteban Clarke MD on 12/18/2023 12:10 AM PDT Station ID: [id number]
== END 2023-12-17 21:58 | disposition home or self-care (01) ==
LOC: DI 21:57
PROVIDERS: ATTEND Podiatrist
DX: E11.51 Type 2 diabetes mellitus with diabetic peripheral angiopathy without gangrene (principal); I70.221 Atherosclerosis of native arteries of extremities with rest pain, right leg; I70.202 Unspecified atherosclerosis of native arteries of extremities, left leg
CPT/HCPCS: 93925